=== PATIENT | male | born 1945 | race Caucasian/White ===

== ENCOUNTER 2023-07-25 15:13 | Emergency (ER) | payer OTHER, MEDICARE ==
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
[2023-07-25 15:23] VITALS: RESP 18; TEMP 98.1
[2023-07-25 15:23] LABS: Glucose,Whole Blood 144 mg/dL (70-110)
[2023-07-25 15:40] LABS: Anisocytosis Slight; Basophils % (A) 0 %; Eosinophils # (A) 0.1 k/uL (0-0.7); Eosinophils % (A) 1 %; HCT 28.3 % (39.0-53.0); HGB 8.7 gm/dL (13.0-17.5); Hypochromasia Marked; Lymphocytes # (A) 0.8 k/uL (1.0-4.8); Lymphocytes % (A) 8 %; MCH 24.7 pg (25.0-35.0); MCHC 30.7 g/dL (31.0-37.0); MCV 80.7 fL (80.0-100.0); Mean Platelet Volume 7.5; Microcytosis Slight; Monocytes # (A) 0.7 k/uL (0-1.0); Monocytes % (A) 7 %; Neutrophils # (A) 8.4 k/uL (1.3-7.7); Neutrophils % (A) 82 %; Platelet Count 291 k/uL (150-450); RBC 3.51 m/uL (4.30-5.90); RDW 19.7 % (11.5-15.5); WBC 10.2 k/uL (3.8-10.6)
[2023-07-25 15:48] LABS: INR 1.1 (<1.2); Partial Thromboplastin Time 27.1 sec (22.0-30.0); Prothrombin Time 11.5 sec (9.0-12.0)
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
[2023-07-25 16:00] LABS: ALT 18 U/L (4-49); AST 27 U/L (17-59); African American GFR (CKD) 40 (>60 ml/min/1.73 sqM); Albumin 3.5 g/dL (3.5-5.0); Alcohol <10 mg/dL; Alkaline Phosphatase 137 U/L (38-126); Anion Gap 11 mmol/L; Blood Urea Nitrogen 61 mg/dL (9-20); Calcium 8.9 mg/dL (8.4-10.2); Carbon Dioxide 23 mmol/L (22-30); Chloride 98 mmol/L (98-107); Glucose 121 mg/dL (74-99); Non-African American GFR(CKD) 35 (>60 ml/min/1.73 sqM); Potassium 4.2 mmol/L (3.5-5.1); Sodium 132 mmol/L (137-145); Total Bilirubin 0.9 mg/dL (0.2-1.3); Total Protein 6.3 g/dL (6.3-8.2)
[2023-07-25] MEDS ORDERED: KETOROLAC 15 MG/ML 1 ML VIAL IVP STA (16:22)
[2023-07-25] MEDS ORDERED: ACET/COD 300 MG/30 MG STARTER PACK 6 TAB BTL PO STA (18:01)
[2023-07-25 18:19] VITALS: BP 110/72; PULSE 74
== END 2023-07-25 18:11 | disposition home or self-care (01) ==
LOC: EC 15:13
DX: S61.411A Laceration without foreign body of right hand, initial encounter (principal); S80.811A Abrasion, right lower leg, initial encounter; D64.9 Anemia, unspecified; I48.91 Unspecified atrial fibrillation; I11.0 Hypertensive heart disease with heart failure; I50.9 Heart failure, unspecified; Z79.01 Long term (current) use of anticoagulants; Z79.899 Other long term (current) drug therapy; V89.2XXA Person injured in unspecified motor-vehicle accident, traffic, initial encounter; Y92.410 Unspecified street and highway as the place of occurrence of the external cause
CPT/HCPCS: 36415; 93005; 86900; 86901; 80053; 84484; 85025; 85610; 85730; 86850; 80320; 72170; 71045; 72125; 70450; 99285; 96374; J1885

== ENCOUNTER 2023-11-28 17:54 | Inpatient (IN) | payer MEDICARE ==
[2023-11-28] MEDS ORDERED: DILTIAZEM DRIP BOLUS FROM BAG 1 MG SOLN IV ONE (17:57)
[2023-11-28] MEDS ORDERED: SODIUM CHLORIDE 0.9% 1,000 ML IV STA (17:57)
--- NOTE | 2023-11-28 18:00 | ED ---
General Adult HPI - General Stated complaint: Afib Time Seen by Provider: 11/28/23 17:55 Source: patient, RN notes reviewed, old records reviewed - History of Present Illness Initial comments: This is a 78-year-old male who presents emergency Department because he has been weak all day to the point where he was unable and bili. Patient does have a history of atrial fibrillation. Patient denies chest pain patient denies short ness of breath or difficulty breathing. Patient states she's had no recent fever chills or cough. Patient states he has had a history of anemia however. Patient denies abdominal pain patient denies nausea vomiting diarrhea. - Related Data Home Medications Medication Instructions Recorded Confirmed Apixaban [Eliquis] 5 mg PO BID 07/21/23 07/21/23 Furosemide [Lasix] 40 mg PO BID@0900,1600 07/21/23 07/21/23 Metoprolol Succinate (ER) [Toprol 100 mg PO BID 07/21/23 07/21/23 XL] Multivitamins, Thera [Multivitamin 1 tab PO DAILY 07/21/23 07/21/23 (formulary)] Spironolactone 25 mg PO DAILY 07/21/23 07/21/23 dilTIAZem HCL [dilTIAZem HCL 12Hr 60 mg PO BID 07/21/23 07/21/23 ER] Allergies Allergy/AdvReac Type Severity Reaction Status Date / Time No Known Allergies Allergy Verified 11/28/23 18:01 Review of Systems ROS Statement: Those systems with pertinent positive or pertinent negative responses have been documented in the HPI. ROS Other: All systems not noted in ROS Statement are negative. Past Medical History Past Medical History: Atrial Fibrillation, Heart Failure, Hypertension Additional Past Medical History / Comment(s): [facility] HTN History of Any Multi-Drug Resistant Organisms: None Reported Past Surgical History: Ablation, Joint Replacement Additional Past Surgical History / Comment(s): Left hip Past Anesthesia/Blood Transfusion Reactions: No Reported Reaction Past Psychological History: No Psychological Hx Reported Smoking Status: Never smoker Past Alcohol Use History: None Reported Past Drug Use History: None Reported - Past Family History Mother Family Medical History: Cancer Additional Family Medical History / Comment(s): lung cancer, heavy smoker: mother had TB when patient was 12 Father Family Medical History: Cancer Additional Family Medical History / Comment(s): lung cancer, heavy smoker General Exam - General Exam Comments Initial Comments: GENERAL: Patient is well-developed and well-nourished. Patient is nontoxic and well- hydrated and is mild distress. ENT: Neck is soft and supple. No significant lymphadenopathy is noted. Oropharynx is clear. Moist mucous membranes. Neck has full range of motion without eliciting any pain. EYES: The sclera were anicteric and conjunctiva were pink and moist. Extraocular move ments were intact and pupils were equal round and reactive to light. Eyelids were unremarkable. PULMONARY: Unlabored respirations. Good breath sounds bilaterally. No audible rales rhonchi or wheezing was noted. CARDIOVASCULAR: A. fib with rapid ventricular response at a rate of 130 beats a minute ABDOMEN: Soft and nontender with normal bowel sounds. SKIN: Skin is clear with no lesions or rashes and otherwise unremarkable. NEUROLOGIC: Patient is alert and oriented x3. Cranial nerves II through XII are grossly intact. Motor and sensory are also intact. Normal speech, volume and content. Symmetrical smile. MUSCULOSKELETAL: Normal extremities with adequate strength and full range of motion. LYMPHATICS: No significant lymphadenopathy is noted PSYCHIATRIC: Normal psychiatric evaluation. Course Vital Signs 11/28/23 11/28/23 11/28/23 17:57 19:29 19:39 Temperature 97.0 F L 97.4 F L 97.2 F L Pulse Rate 129 H 124 H 122 H Respiratory 20 22 22 Rate Blood Pressure 118/101 107/67 116/59 O2 Sat by Pulse 95 96 96 Oximetry Medical Decision Making - Medical Decision Making EKG is interpreted by myself EKG shows atrial fibrillation with rapid ventricular response at 119 bpm patient also throwing some PVCs. QRS is 173 QT interval 374 QTC is 444. Patient's EKG shows no significant ST segment elevation. Patient does have a right bundle branch block. Was pt. sent in by a medical professional or institution (, PA, MEMBER SERVICES COORDINATOR, urgent care, hospital, or penitentiary...) When possible be specific @ -No Did you speak to anyone other than the patient for history (EMS, parent, family, police, friend...)? What history was obtained from this source @ -MSK a lot of the history. Did you review nursing and triage notes (agree or disagree)? Why? @ -I reviewed and agree with nursing and triage notes Were old charts reviewed (outside hosp., previous admission, EMS record, old EKG, old radiological studies, urgent care reports/EKG's, penitentiary records)? Report findings @ -I reviewed prior charts and lab work on this patient. Differential Diagnosis (chest pain, altered mental status, abdominal pain women, abdominal pain men, vaginal bleeding, weakness, fever, dyspnea, syncope, he adache, dizziness, GI bleed, back pain, seizure, CVA, palpatations, mental health, musculoskeletal)? @ -Differential Weakness: Hypoglycemia, shock, sepsis, hyponatremia, anemia, infection, IN, ETOH, adverse medicine reaction, overdose, stroke, this is not meant to be an all-inclusive list. EKG interpreted by me (3pts min.). @ -As above X-rays interpreted by me (1pt min.). @ -Chest x-ray shows no acute abnormality CT interpreted by me (1pt min.). @ -None done U/S interpreted by me (1pt. min.). @ -None done What testing was considered but not performed or refused? (CT, X-rays, U/S, labs)? Why? @ -None What meds were considered but not given or refused? Why? @ -None Did you discuss the management of the patient with other professionals (professionals i.e. , PA, MEMBER SERVICES COORDINATOR, lab, RT, psych nurse, social welfare administrator, well tender, teacher, information assurance officer, case picker)? Give summary @ -I spoke with the band log mill and carriage operator and hospitalist and they agreed to admit the patient. Was smoking cessation discussed for >3mins.? @ -No Was critical care preformed (if so, how long)? @ -35 minutes Were there social determinants of health that impacted care today? How? (Homelessness, low income, unemployed, alcoholism, drug addiction, transporta tion, low edu. Level, literacy, decrease access to med. care, retirement, rehab)? @ -No Was there de-escalation of care discussed even if they declined (Discuss DNR or withdrawal of care, Hospice)? DNR status @ -No What co-morbidities impacted this encounter? (DM, HTN, Smoking, COPD, CAD, Cancer, CVA, ARF, Chemo, Hep., AIDS, mental health diagnosis, sleep apnea, morbid obesity)? @ -None Was patient admitted / discharged? Hospital course, mention meds given and route, prescriptions, significant lab abnormalities, going to OR and other pertinent info. @ -Patient came into the emergency department the lab work lab work showed that the patient was very anemic at 5.8. Patient was also hypokalemic. Patient's renal function was also significantly worse. I also replace potassium. I also spoke with the [facility] hospitalist and they agreed to admit the patient admitted the patient wrote admitting orders Undiagnosed new problem with uncertain prognosis? @ -No Drug Therapy requiring intensive monitoring for toxicity (Heparin, Nitro, Insulin, Cardizem)? @ -No Were any procedures done? @ -No Diagnosis/symptom? @ -Anemia Acute, or Chronic, or Acute on Chronic? @ -Acute Uncomplicated (without systemic symptoms) or Complicated (systemic symptoms)? @ -Complicated Side effects of treatment? @ -No Exacerbation, Progression, or Severe Exacerbation? @ -No Poses a threat to life or bodily function? How? (Chest pain, [place], [place], pneumonia, PE, COPD, DKA, ARF, appy, cholecystitis, CVA, Diverticulitis, Homicidal, Suicidal, threat to staff... and all critical care pts) @ -Yes this could lead hypoxia and end organ dysfunction Diagnosis/symptom? @ -Hypokalemia Acute, or Chronic, or Acute on Chronic? @ -Acute Uncomplicated (without systemic symptoms) or Complicated (systemic symptoms)? @ -Complicated Side effects of treatment? @ -none Exacerbation, Progression, or Severe Exacerbation] @ -no Poses a threat to life or bodily function? @ -Yes this could lead to arrhythmias and morbidity mortality Diagnosis/symptom? @ -Acute renal failure Acute, or Chronic, or Acute on Chronic? @ -Acute Uncomplicated (without systemic symptoms) or Complicated (systemic symptoms)? @ -Complicated Side effects of treatment? @ -none Exacerbation, Progression, or Severe Exacerbation] @ -no Poses a threat to life or bodily function? @ -Yes this could lead to significant electrolyte abnormalities Diagnosis/symptom? @ -A. fib with rapid ventricular response Acute, or Chronic, or Acute on Chronic? @ -Acute on chronic Uncomplicated (without systemic symptoms) or Complicated (systemic symptoms)? @ -Complicated Side effects of treatment? @ -none Exacerbation, Progression, or Severe Exacerbation] @ -no Poses a threat to life or bodily function? @ -no - Lab Data Result diagrams: 11/28/23 18:02 11/28/23 18:02 Lab Results 11/28/23 11/28/23 11/28/23 Range/Units 18:00 18:02 18:02 WBC 17.8 H (3.8-10.6) k/uL RBC 2.07 L (4.30-5.90) m/uL Hgb 5.8 L* (13.0-17.5) gm/dL Hct 17.9 L* (39.0-53.0) % MCV 86.6 (80.0-100.0) fL MCH 28.1 (25.0-35.0) pg MCHC 32.5 (31.0-37.0) g/dL RDW 21.3 H (11.5-15.5) % Plt Count 352 (150-450) k/uL MPV 8.5 Neutrophils % 92 % Lymphocytes % 4 % Monocytes % 2 % Eosinophils % 1 % Basophils % 0 % Neutrophils # 16.5 H (1.3-7.7) k/uL Lymphocytes # 0.7 L (1.0-4.8) k/uL Monocytes # 0.4 (0-1.0) k/uL Eosinophils # 0.2 (0-0.7) k/uL Basophils # 0.0 (0-0.2) k/uL Hypochromasia Slight Anisocytosis Moderate PT 13.1 H (10.0-12.5) sec INR 1.2 H (<1.2) APTT 21.3 L (22.0-30.0) sec Sodium (137-145) mmol/L Potassium (3.5-5.1) mmol/L Chloride (98-107) mmol/L Carbon Dioxide (22-30) mmol/L Anion Gap mmol/L BUN (9-20) mg/dL Creatinine (0.66-1.25) mg/dL Est GFR (CKD-EPI)AfAm (>60 ml/min/1.73 sqM) Est GFR (CKD-EPI)NonAf (>60 ml/min/1.73 sqM) Glucose (74-99) mg/dL Calcium (8.4-10.2) mg/dL Magnesium (1.6-2.3) mg/dL Total Bilirubin (0.2-1.3) mg/dL AST (17-59) U/L ALT (4-49) U/L Alkaline Phosphatase (38-126) U/L Troponin I (0.000-0.034) ng/mL NT-Pro-B Natriuret Pep pg/mL Total Protein (6.3-8.2) g/dL Albumin (3.5-5.0) g/dL Urine Color Urine Appearance (Clear) Urine pH (5.0-8.0) Ur Specific [place] (1.001-1.035) Urine Protein (Negative) Urine Glucose (UA) (Negative) Urine Ketones (Negative) Urine Blood (Negative) Urine Nitrite (Negative) Urine Bilirubin (Negative) Urine Urobilinogen (<2.0) mg/dL Ur Leukocyte Esterase (Negative) Urine RBC (0-5) /hpf Urine WBC (0-5) /hpf Urine Bacteria (None) /hpf Urine Mucus (None) /hpf Blood Type O Positive Blood Type Recheck O Pos Bld Type Recheck Status No Antibody Screen NEGATIVE Crossmatch See Detail Spec Expiration Date 12/01/2023 - 229911/28/23 11/28/23 11/28/23 Range/Units 18:02 18:02 18:57 WBC (3.8-10.6) k/uL RBC (4.30-5.90) m/uL Hgb (13.0-17.5) gm/dL Hct (39.0-53.0) % MCV (80.0-100.0) fL MCH (25.0-35.0) pg MCHC (31.0-37.0) g/dL RDW (11.5-15.5) % Plt Count (150-450) k/uL MPV Neutrophils % % Lymphocytes % % Monocytes % % Eosinophils % % Basophils % % Neutrophils # (1.3-7.7) k/uL Lymphocytes # (1.0-4.8) k/uL Monocytes # (0-1.0) k/uL Eosinophils # (0-0.7) k/uL Basophils # (0-0.2) k/uL Hypochromasia Anisocytosis PT (10.0-12.5) sec INR (<1.2) APTT (22.0-30.0) sec Sodium 147 H (137-145) mmol/L Potassium 2.8 L (3.5-5.1) mmol/L Chloride 105 (98-107) mmol/L Carbon Dioxide 15 L (22-30) mmol/L Anion Gap 27 mmol/L BUN 200 H* (9-20) mg/dL Creatinine 3.12 H (0.66-1.25) mg/dL Est GFR (CKD-EPI)AfAm 21 (>60 ml/min/1.73 sqM) Est GFR (CKD-EPI)NonAf 18 (>60 ml/min/1.73 sqM) Glucose 153 H (74-99) mg/dL Calcium 10.1 (8.4-10.2) mg/dL Magnesium 2.5 H (1.6-2.3) mg/dL Total Bilirubin 0.7 (0.2-1.3) mg/dL AST 28 (17-59) U/L ALT 20 (4-49) U/L Alkaline Phosphatase 92 (38-126) U/L Troponin I 0.054 H* (0.000-0.034) ng/mL NT-Pro-B Natriuret Pep 67492 pg/mL Total Protein 6.4 (6.3-8.2) g/dL Albumin 3.8 (3.5-5.0) g/dL Urine Color Colorless Urine Appearance Clear (Clear) Urine pH 5.5 (5.0-8.0) Ur Specific [place] 1.014 (1.001-1.035) Urine Protein Negative (Negative) Urine Glucose (UA) Negative (Negative) Urine Ketones Negative (Negative) Urine Blood Negative (Negative) Urine Nitrite Negative (Negative) Urine Bilirubin Negative (Negative) Urine Urobilinogen <2.0 (<2.0) mg/dL Ur Leukocyte Esterase Large H (Negative) Urine RBC 1 (0-5) /hpf Urine WBC 5 (0-5) /hpf Urine Bacteria Rare H (None) /hpf Urine Mucus Rare H (None) /hpf Blood Type Blood Type Recheck Bld Type Recheck Status Antibody Screen Crossmatch Spec Expiration Date Critical Care Time Critical Care Time: Yes Total Critical Care Time: 35 Disposition Clinical Impression: Anemia, Hypokalemia, Acute renal failure, Atrial fibrillation with rapid ventricular response Disposition: ADMITTED IP TO THIS [facility] Time of Disposition: 19:38
--- NOTE | 2023-11-28 18:20 | XR ---
EXAMINATION TYPE: XR chest 2V DATE OF EXAM: 11/28/2023 COMPARISON: 07/25/2023 INDICATION: Dysrhythmia TECHNIQUE: Frontal and lateral views of the chest are obtained. FINDINGS: The heart size is normal. The pulmonary vasculature is normal. The lungs are clear. IMPRESSION: 1. No acute pulmonary process.
[2023-11-28 18:22] LABS: Anisocytosis Moderate; Basophils % (A) 0 %; Eosinophils # (A) 0.2 k/uL (0-0.7); Eosinophils % (A) 1 %; Hypochromasia Slight; Lymphocytes # (A) 0.7 k/uL (1.0-4.8); Lymphocytes % (A) 4 %; MCH 28.1 pg (25.0-35.0); MCHC 32.5 g/dL (31.0-37.0); MCV 86.6 fL (80.0-100.0); Mean Platelet Volume 8.5; Monocytes # (A) 0.4 k/uL (0-1.0); Monocytes % (A) 2 %; Neutrophils # (A) 16.5 k/uL (1.3-7.7); Neutrophils % (A) 92 %; Platelet Count 352 k/uL (150-450); RBC 2.07 m/uL (4.30-5.90); RDW 21.3 % (11.5-15.5); WBC 17.8 k/uL (3.8-10.6)
[2023-11-28] MEDS: DILTIAZEM 125 MG in SODIUM CHLORIDE 0.9% 100 ML IV SCH (18:26)
[2023-11-28 18:29] LABS: HCT 17.9 % (39.0-53.0); HGB 5.8 gm/dL (13.0-17.5)
[2023-11-28 18:36] LABS: ALT 20 U/L (4-49); AST 28 U/L (17-59); African American GFR (CKD) 21 (>60 ml/min/1.73 sqM); Albumin 3.8 g/dL (3.5-5.0); Alkaline Phosphatase 92 U/L (38-126); Anion Gap 27 mmol/L; Calcium 10.1 mg/dL (8.4-10.2); Carbon Dioxide 15 mmol/L (22-30); Chloride 105 mmol/L (98-107); Glucose 153 mg/dL (74-99); Magnesium 2.5 mg/dL (1.6-2.3); Non-African American GFR(CKD) 18 (>60 ml/min/1.73 sqM); Potassium 2.8 mmol/L (3.5-5.1); Sodium 147 mmol/L (137-145); Total Bilirubin 0.7 mg/dL (0.2-1.3); Total Protein 6.4 g/dL (6.3-8.2)
[2023-11-28 18:45] LABS: NT-Pro-B-Type Natriuretic Pept 16000 pg/mL
[2023-11-28 18:46] LABS: INR 1.2 (<1.2); Prothrombin Time 13.1 sec (10.0-12.5)
[2023-11-28 18:47] LABS: Partial Thromboplastin Time 21.3 sec (22.0-30.0)
[2023-11-28 18:55] LABS: Blood Urea Nitrogen 200 mg/dL (9-20)
[2023-11-28 19:15] LABS: Appearance,Urine Clear (Clear); Bacteria,Urine Rare /hpf; Bilirubin,Urine Negative (Negative); Blood,Urine Negative (Negative); Color,Urine Colorless; Glucose,Urine (UA) Negative (Negative); Ketones,Urine Negative (Negative); Leukocyte Esterase,Urine Large (Negative); Mucus,Urine Rare /hpf; Nitrite,Urine Negative (Negative); PH, Urine 5.5 (5.0-8.0); Protein,Urine Negative (Negative); RBC,Urine 1 /hpf (0-5); Specific Gravity,Urine 1.014 (1.001-1.035); Urobilinogen,Urine <2.0 mg/dL (<2.0); WBC,Urine 5 /hpf (0-5)
[2023-11-28] MEDS ORDERED: POTASSIUM CHLORIDE 20 MEQ in WATER FOR INJECTION 1 100ML.BAG IVPB STA (19:38)
[2023-11-28] MEDS ORDERED: POTASSIUM CHLORIDE ER 20 MEQ TAB.ER PO STA (19:39)
[2023-11-28] MEDS ORDERED: SODIUM CHLORIDE 0.9% 1,000 ML IV ONE (19:39)
[2023-11-28] MEDS: CLOTRIMAZOLE 1% CREAM 30 GM TUBE TOPICAL SCH (21:53)
[2023-11-29 03:22] LABS: Anisocytosis Slight; Basophils % (A) 0 %; Eosinophils % (A) 0 %; HCT 21.7 % (39.0-53.0); HGB 7.2 gm/dL (13.0-17.5); Hypochromasia Slight; Lymphocytes # (A) 0.7 k/uL (1.0-4.8); Lymphocytes % (A) 4 %; MCH 29.3 pg (25.0-35.0); MCV 88.8 fL (80.0-100.0); Mean Platelet Volume 9.1; Monocytes # (A) 0.9 k/uL (0-1.0); Monocytes % (A) 5 %; Neutrophils # (A) 15.3 k/uL (1.3-7.7); Neutrophils % (A) 89 %; Platelet Count 260 k/uL (150-450); RBC 2.45 m/uL (4.30-5.90); RDW 18.3 % (11.5-15.5); WBC 17.1 k/uL (3.8-10.6)
[2023-11-29 08:44] LABS: Anisocytosis Slight; HCT 22.9 % (39.0-53.0); HGB 7.4 gm/dL (13.0-17.5); Hypochromasia Slight; MCH 28.6 pg (25.0-35.0); MCHC 32.3 g/dL (31.0-37.0); MCV 88.5 fL (80.0-100.0); Mean Platelet Volume 10.5; Platelet Count 225 k/uL (150-450); Poikilocytosis Slight; RBC 2.59 m/uL (4.30-5.90); RDW 18.4 % (11.5-15.5); WBC 17.8 k/uL (3.8-10.6)
[2023-11-29 09:04] LABS: African American GFR (CKD) 27 (>60 ml/min/1.73 sqM); Anion Gap 18 mmol/L; Calcium 9.7 mg/dL (8.4-10.2); Carbon Dioxide 15 mmol/L (22-30); Chloride 111 mmol/L (98-107); Glucose 131 mg/dL (74-99); Magnesium 2.4 mg/dL (1.6-2.3); Non-African American GFR(CKD) 23 (>60 ml/min/1.73 sqM); Potassium 3.1 mmol/L (3.5-5.1); Sodium 144 mmol/L (137-145)
[2023-11-29 09:39] LABS: Blood Urea Nitrogen 166 mg/dL (9-20)
[2023-11-29] MEDS: CLOTRIMAZOLE 1% CREAM 30 GM TUBE TOPICAL SCH ×2 (09:56→21:35)
[2023-11-29] MEDS: METOPROLOL SUCCINATE (ER) 100 MG TAB.ER.24H PO SCH (10:01)
[2023-11-29] MEDS: methocarbamoL 500 MG TAB PO PRN ×2 (11:37→20:37)
--- NOTE | 2023-11-29 11:52 | P.CRDCN ---
History of Present Illness History of present illness: HISTORY OF PRESENT ILLNESS: This is a 78-year-old male with a past medical history significant for persistent atrial fibrillation, congestive heart failure, hypertension, and chronic anemia. Patient follows with a big data lead out of [facility]. We have been asked to see the patient in consultation for A. fib with RVR. Patient examined at the bedside in the emergency room. The patient states he presented to the hospital for chief complaint of weakness. He denied having any chest pain or pressure. He denies any shortness of breath. Patient was found to be anemic with a hemoglobin of 5.8. He received RBC transfusion. Hemoglobin this morning is 7.4. He does report a history of anemia but he is somewhat of a poor historian and is unable to recall if he has had anemia workup in the past. He is prescribed Eliquis on an outpatient basis. He denies any blood in his stools or black tarry stools. Denies any hematuria. The patient was also found to be in A. fib with RVR. He was started on IV Cardizem. At the time of examination, he remains in atrial fibrillation with a heart rate around 120. He denies any previous history of coronary artery disease. * EKG reveals A. fib with RVR. Right bundle-branch block. PVCs. * Chest xray negative for acute process * Laboratory data: Hemoglobin 7.4. W BC 17.8. BUN 166. Creatinine 2.56. Troponin 0.054. ProBNP 16,000. * Current home cardiac medications include Eliquis 5 mg twice a day, Lasix 20 mg twice a day, Demadex 20 mg twice a day, metoprolol succinate 100 mg in the morning and 50 mg at night * Most recent echocardiogram obtained in July 2023 revealing ejection fraction 50%, severe pulmonary hypertension, moderate to severe mitral regurgitation, extremely calcified aortic valves, difficult to exclude bicuspid aortic valve. REVIEW OF SYSTEMS: At the time of my exam: CONSTITUTIONAL: Denies fever or chills. HEENT: Denies blurred vision, vision changes, or eye pain. Denies hemoptysis CARDIOVASCULAR: Denies chest pain. Denies orthopnea. Denies PND. Denies palpitations RESPIRATORY: Denies shortness of breath. GASTROINTESTINAL: Denies abdominal pain. Denies nausea or vomiting. HEMATOLOGIC: Denies bleeding disorders. GENITOURINARY: Denies any blood in urine. SKIN: Denies pruitis. Denies rash. PHYSICAL EXAM: VITAL SIGNS: Reviewed. GENERAL: Well-developed in no acute distress. HEENT: Head is normocephalic. Pupils are equal, round. Sclerae anicteric. Mucous membranes of the mouth are moist. Neck supple. No JVD or thyromegaly LUNGS: Respirations even and unlabored. Lungs essentially clear to auscultation bilaterally. HEART: Tachycardic. Irregular rate and rhythm. S1 and S2 heard. ABDOMEN: Soft. Nondistended. Nontender. EXTREMITIES: Normal range of motion. No clubbing or cyanosis. Peripheral pulses intact. No lower extremity edema NEUROLOGIC: Awake and alert. Oriented x 3. ASSESSMENT: Generalized weakness Persistent atrial fibrillation with RVR Acute on chronic anemia, etiology unclear Acute kidney injury Hypokalemia History of atrial fibrillation ablation, approximately 4 years ago History of congestive heart failure with preserved ejection fraction, 50% PLAN: Obtain 2-D echo to assess cardiac structure and function Resume metoprolol succinate Continue IV Cardizem at this time for rate control Continue telemetry monitoring Hold anticoagulation secondary to anemia Further workup and evaluation of anemia per internal medicine Patient prescribed Demadex and Lasix on an outpatient basis. Unsure if patient was taking both of these medications at home. Hold diuretics at this time Hold losartan secondary to acute kidney injury Further recommendations pending patient's course Nurse practitioner note has been reviewed by physician. Signing provider agrees with the documented findings, assessment, and plan of care. Past Medical History Past Medical History: Atrial Fibrillation, Heart Failure, Hypertension Additional Past Medical History / Comment(s): pumonary HTN History of Any Multi-Drug Resistant Organisms: None Reported Past Surgical History: Ablation, Joint Replacement Additional Past Surgical History / Comment(s): Left hip Past Anesthesia/Blood Transfusion Reactions: No Reported Reaction Past Psychological History: No Psychological Hx Reported Smoking Status: Never smoker Past Alcohol Use History: None Reported Past Drug Use History: None Reported - Past Family History Mother Family Medical History: Cancer Additional Family Medical History / Comment(s): lung cancer, heavy smoker: mother had TB when patient was 12 Father Family Medical History: Cancer Additional Family Medical History / Comment(s): lung cancer, heavy smoker Medications and Allergies Home Medications Medication Instructions Recorded Confirmed Type Apixaban [Eliquis] 5 mg PO BID 07/21/23 11/28/23 History Docusate Sodium [Dok] 100 mg PO BID 11/28/23 11/28/23 History Furosemide [Lasix] 20 mg PO BID 11/28/23 11/28/23 History Losartan Potassium 50 mg PO DAILY 11/28/23 11/28/23 History Metoprolol Succinate [Toprol XL] 50 mg PO HS 11/28/23 11/28/23 History Metoprolol Succinate [Toprol XL] 100 mg PO DAILY 11/28/23 11/28/23 History Torsemide [Demadex] 20 mg PO BID 11/28/23 11/28/23 History methocarbamoL [Robaxin] 500 mg PO TID PRN 11/28/23 11/28/23 History traZODone HCL [Desyrel] 100 mg PO HS 11/28/23 11/28/23 History Allergies Allergy/AdvReac Type Severity Reaction Status Date / Time No Known Allergies Allergy Verified 11/28/23 20:13 Physical Exam Vitals: Vital Signs Temp Pulse Pulse Resp BP BP Pulse Ox 11/29/23 08:57 105/74 11/29/23 08:56 118 H 22 94/75 99 11/29/23 08:45 116 H 22 124/71 99 11/29/23 08:36 147 H 25 H 139/76 100 11/29/23 01:43 97.3 F L 117 H 20 112/78 100 11/28/23 23:42 97.5 F L 118 H 20 125/70 100 11/28/23 23:22 97.2 F L 129 H 20 126/70 100 11/28/23 23:16 97.3 F L 133 H 20 126/60 100 11/28/23 22:27 97.9 F 126 H 20 119/54 100 11/28/23 19:59 97.9 F 125 H 20 117/68 100 11/28/23 19:39 97.2 F L 122 H 22 116/59 96 11/28/23 19:29 97.4 F L 124 H 22 107/67 96 11/28/23 17:57 97.0 F L 129 H 20 118/101 95 Intake and Output 11/28/23 11/29/23 11/29/23 22:59 06:59 14:59 Intake Total 310 310 70.583 Balance 310 310 70.583 Intake: Intake, IV Titration 70.583 Amount Diltiazem 125 mg In 70.583 Sodium Chloride 0.9% 100 ml @ 5 MG/HR 5 mls/hr IV .Q24H [facility] Rx#:[id number] Blood Product 310 310 Rc As-1 Unit 310 [id number] Rc As-1 Unit 310 [id number] Other: Weight 77.836 kg Results 11/29/23 08:31 11/29/23 08:31 Cardiac Enzymes 11/28/23 11/28/23 Range/Units 18:02 18:02 AST 28 (17-59) U/L Troponin I 0.054 H* (0.000-0.034) ng/mL Coagulation 11/28/23 Range/Units 18:02 PT 13.1 H (10.0-12.5) sec APTT 21.3 L (22.0-30.0) sec CBC 11/28/23 11/29/23 11/29/23 Range/Units 18:02 02:23 08:31 WBC 17.8 H 17.1 H 17.8 H (3.8-10.6) k/uL RBC 2.07 L 2.45 L 2.59 L (4.30-5.90) m/uL Hgb 5.8 L* 7.2 L 7.4 L (13.0-17.5) gm/dL Hct 17.9 L* 21.7 L 22.9 L (39.0-53.0) % Plt Count 352 260 225 (150-450) k/uL Comprehensive Metabolic Panel 11/28/23 Range/Units 18:02 Sodium 147 H (137-145) mmol/L Potassium 2.8 L (3.5-5.1) mmol/L Chloride 105 (98-107) mmol/L Carbon Dioxide 15 L (22-30) mmol/L BUN 200 H* (9-20) mg/dL Creatinine 3.12 H (0.66-1.25) mg/dL Glucose 153 H (74-99) mg/dL Calcium 10.1 (8.4-10.2) mg/dL AST 28 (17-59) U/L ALT 20 (4-49) U/L Alkaline Phosphatase 92 (38-126) U/L Total Protein 6.4 (6.3-8.2) g/dL Albumin 3.8 (3.5-5.0) g/dL Current Medications Generic Name Dose Route Start Last Admin Trade Name Jessika PRN Reason Stop Dose Admin Clotrimazole 1 applic 11/28/23 21:00 11/28/23 21:53 Clotrimazole 1% Cream 30 Gm Tube TOPICAL 1 applic BID [facility] Administration Protocol Diltiazem HCl 125 mg/ Sodium 125 mls @ 5 mls/hr 11/28/23 18:00 11/29/23 08:33 Chloride IV 10 mg/hr .Q24H JEREMIAS 10 mls/hr Infusion 5 MG/HR Intake and Output 11/28/23 11/29/23 11/29/23 22:59 06:59 14:59 Intake Total 310 310 70.583 Balance 310 310 70.583 Intake: Intake, IV Titration 70.583 Amount Diltiazem 125 mg In 70.583 Sodium Chloride 0.9% 100 ml @ 5 MG/HR 5 mls/hr IV .Q24H [facility] Rx#:[id number] Blood Product 310 310 Rc As-1 Unit 310 [id number] Rc As-1 Unit 310 [id number] Other: Weight 77.836 kg 11/29/23 08:31 11/28/23 18:02
--- NOTE | 2023-11-29 12:07 | P.NPCON ---
History of Present Illness - Reason for Consult acute renal failure - History of Present Illness Patient is a 78-year-old male with history of hypertension, chronic A. fib, pulmonary hypertension and chronic kidney disease NKF stage IV with previous creatinine at 1.8 mg/dL in July 2023. Patient is admitted to the hospital with complaints of increased weakness and inability to ambulate. He denied any fevers chills nausea vomiting abdominal pain or diarrhea. Serum creatinine was 3.1 with BUN of 200 on admission with a hemoglobin of 5.8. Repeat creatinine this morning is down to 2.5 and B UN of 166. No active GI bleed noted. Patient is status post fluid bolus. Maintained on a liquid is at home for chronic A. fib. Patient was also maintained on losartan and torsemide. Blood pressure was low with systolic in the 90s. Currently feeling better. Review of Systems As per HPI Past Medical History Past Medical History: Atrial Fibrillation, Heart Failure, Hypertension Additional Past Medical History / Comment(s): pumonary HTN History of Any Multi-Drug Resistant Organisms: None Reported Past Surgical History: Ablation, Joint Replacement Additional Past Surgical History / Comment(s): Left hip Past Anesthesia/Blood Transfusion Reactions: No Reported Reaction Past Psychological History: No Psychological Hx Reported Smoking Status: Never smoker Past Alcohol Use History: None Reported Past Drug Use History: None Reported - Past Family History Mother Family Medical History: Cancer Additional Family Medical History / Comment(s): lung cancer, heavy smoker: mother had TB when patient was 12 Father Family Medical History: Cancer Additional Family Medical History / Comment(s): lung cancer, heavy smoker Medications and Allergies Home Medications Medication Instructions Recorded Confirmed Type Apixaban [Eliquis] 5 mg PO BID 07/21/23 11/28/23 History Docusate Sodium [Dok] 100 mg PO BID 11/28/23 11/28/23 History Furosemide [Lasix] 20 mg PO BID 11/28/23 11/28/23 History Losartan Potassium 50 mg PO DAILY 11/28/23 11/28/23 History Metoprolol Succinate [Toprol XL] 50 mg PO HS 11/28/23 11/28/23 History Metoprolol Succinate [Toprol XL] 100 mg PO DAILY 11/28/23 11/28/23 History Torsemide [Demadex] 20 mg PO BID 11/28/23 11/28/23 History methocarbamoL [Robaxin] 500 mg PO TID PRN 11/28/23 11/28/23 History traZODone HCL [Desyrel] 100 mg PO HS 11/28/23 11/28/23 History Allergies Allergy/AdvReac Type Severity Reaction Status Date / Time No Known Allergies Allergy Verified 11/28/23 20:13 Physical Exam Vitals: Vital Signs Temp Pulse Pulse Resp BP BP Pulse Ox 11/29/23 09:07 120 H 22 106/86 99 11/29/23 08:57 105/74 11/29/23 08:56 118 H 22 94/75 99 11/29/23 08:45 116 H 22 124/71 99 11/29/23 08:36 147 H 25 H 139/76 100 11/29/23 01:43 97.3 F L 117 H 20 112/78 100 11/28/23 23:42 97.5 F L 118 H 20 125/70 100 11/28/23 23:22 97.2 F L 129 H 20 126/70 100 11/28/23 23:16 97.3 F L 133 H 20 126/60 100 11/28/23 22:27 97.9 F 126 H 20 119/54 100 11/28/23 19:59 97.9 F 125 H 20 117/68 100 11/28/23 19:39 97.2 F L 122 H 22 116/59 96 11/28/23 19:29 97.4 F L 124 H 22 107/67 96 11/28/23 17:57 97.0 F L 129 H 20 118/101 95 Intake and Output 11/28/23 11/29/23 11/29/23 22:59 06:59 14:59 Intake Total 310 310 70.583 Balance 310 310 70.583 Intake: Intake, IV Titration 70.583 Amount Diltiazem 125 mg In 70.583 Sodium Chloride 0.9% 100 ml @ 5 MG/HR 5 mls/hr IV .Q24H [facility] Rx#:[id number] Blood Product 310 310 As-1 Unit 310 [id number] As-1 Unit 310 [id number] Other: Weight 77.836 kg Patient is awake, comfortable, no acute distress Examination of the heart S1 and S2 Examination of the lungs bilateral breath sounds are heard Abdomen is soft nontender Examination of lower extremities shows no significant edema TYPING SECTION CHIEF exam grossly intact Results - Lab Results Most recent lab results Calcium 9.7 mg/dL (8.4-10.2) 11/29/23 08:31 Magnesium 2.4 mg/dL (1.6-2.3) H 11/29/23 08:31 11/29/23 08:31 11/29/23 08:31 Assessment and Plan Assessment: 1. Acute kidney injury, ATN currently nonoliguric secondary to hypotension in t he setting of use of angiotensin receptor blockers and severe anemia. Currently improving with IV hydration. B UN is disproportionately elevated secondary to most likely underlying GI bleed. UA is completely benign 2. Severe anemia rule out GI bleed. Patient was maintained on eliquis. 3. Hypokalemia associated with use of diuretics and decreased oral intake 4. Hypotension, hypovolemic and secondary to severe anemia. 5. Anion gap metabolic acidosis associated with acute kidney injury and hypotension 6. Hypernatremia so sedated with free water deficit and use of diuretics 7. Chronic kidney disease NKF stage IV secondary to nephrosclerosis with previous creatinine 1.8 in July 2023. Plan: IV hydration Change the bicarb drip Replace potassium Check post void residual Check ultrasound of the kidneys Repeat labs in a.m. Continue off of angiotensin receptor blockers and hold liquids for now. Check stool for occult blood. Thank you for the consultation. We will continue to follow the patient with you during his hospitalization.
[2023-11-29] MEDS ORDERED: Magnesium Replacement Protocol 1 EACH MISC MISCELLANE PRN (12:20)
[2023-11-29] MEDS ORDERED: Potassium Replacement Protocol 1 EACH MISC MISCELLANE PRN (12:20)
[2023-11-29] MEDS ORDERED: PANTOPRAZOLE 40 MG/10 ML VIAL IVP SCH (12:30)
[2023-11-29] MEDS: DEXTROSE 5% IN WATER 1,000 ML with SODIUM BICARB (1 MEQ/ML) 150 ML IV SCH (12:34)
[2023-11-29] MEDS: DILTIAZEM 125 MG in SODIUM CHLORIDE 0.9% 100 ML IV SCH (12:40)
--- NOTE | 2023-11-29 14:10 | P.GSCN ---
History of Present Illness Consult date: 11/29/23 History of present illness: CHIEF COMPLAINT: Weakness HISTORY OF PRESENT ILLNESS: This is a 78-year-old male who presented to the hospital with complaints of weakness. He reports she's been having black stools almost every other day for the past 4 weeks. He does take Eliquis for his A. fib. He reports he has not taken it for 2 days. He denies any abdominal pain. He thought the black stools were normal. He reports having a colonoscopy about 4 months ago and possibly an EGD he reports at that time it was normal. He denies any abdominal pain. Denies any nausea or vomiting. He's had a history of anemia. Hemoglobin of 5.8 admission he received 2 units of blood and is scheduled for another unit. Stool for occult blood is positive. He has been tachycardic and hypotensive. And evidence of A. fib with RVR. He is on a Cardizem drip and followed by cardiology. Also evidence of acute kidney injury and followed by nephrology. Patient receiving IV fluids and sodium bicarb drip. Patient denies any NSAID use PAST MEDICAL HISTORY: Atrial Fibrillation, Heart Failure, Hypertension, pulmonary hypertension PAST SURGICAL HISTORY: Cardiac ablation MEDICATIONS: See below ALLERGIES: See below SOCIAL HISTORY: No illicit drug use. REVIEW OF SYSTEMS: CONSTITUTIONAL: Denies fever or chills. HEENT: Denies blurred vision, vision changes, or eye pain. Denies hemoptysis CARDIOVASCULAR: Denies chest pain or pressure. RESPIRATORY: No shortness of breath. GASTROINTESTINAL: See HPI for pertinent findings HEMATOLOGIC: Denies bleeding disorders. GENITOURINARY: Denies any blood in urine or increased urinary frequency. SKIN: Denies pruitis. Denies rash. PHYSICAL EXAM: VITAL SIGNS: Reviewed GENERAL: Well-developed in no acute distress. ABDOMEN: Soft. Nondistended. Nontender NEUROLOGIC: Alert and oriented. Cranial nerves II through XII grossly intact. LABORATORY DATA: WBC 17.8 H she be 5.8 up to 7.4 platelets 225 Sodium 144 potassium is 3.1 creatinine 2.6 BUN elevated at 166 Troponin 0.054 BNP 16,000 Stool for occult blood positive IMAGING: ASSESSMENT: 1. Acute GI bleed with melanotic stools 2. Acute blood loss anemia secondary GI bleed 3. History of atrial fibrillation on Eliquis at home 4. Hypokalemia replaced PLAN: -Agree with transferring patient to tertiary care center or patient can had EGD with Dr. Lyles on . There is no GI coverage this week -Agree with blood transfusion -Continue to transfuse as needed -Continue to monitor hemoglobin -Continue IV fluids -Hold Eliquis -Change IV Protonix to twice a day Physician Director Of Rooms note has been reviewed by physician. Signing provider agrees with the documented findings, assessment, and plan of care. Past Medical History Past Medical History: Atrial Fibrillation, Heart Failure, Hypertension Additional Past Medical History / Comment(s): pumonary HTN History of Any Multi-Drug Resistant Organisms: None Reported Past Surgical History: Ablation, Joint Replacement Additional Past Surgical History / Comment(s): Left hip Past Anesthesia/Blood Transfusion Reactions: No Reported Reaction Past Psychological History: No Psychological Hx Reported Smoking Status: Never smoker Past Alcohol Use History: None Reported Past Drug Use History: None Reported - Past Family History Mother Family Medical History: Cancer Additional Family Medical History / Comment(s): lung cancer, heavy smoker: mother had TB when patient was 12 Father Family Medical History: Cancer Additional Family Medical History / Comment(s): lung cancer, heavy smoker Medications and Allergies Home Medications Medication Instructions Recorded Confirmed Type Apixaban [Eliquis] 5 mg PO BID 07/21/23 11/28/23 History Docusate Sodium [Dok] 100 mg PO BID 11/28/23 11/28/23 History Furosemide [Lasix] 20 mg PO BID 11/28/23 11/28/23 History Losartan Potassium 50 mg PO DAILY 11/28/23 11/28/23 History Metoprolol Succinate [Toprol XL] 50 mg PO HS 11/28/23 11/28/23 History Metoprolol Succinate [Toprol XL] 100 mg PO DAILY 11/28/23 11/28/23 History Torsemide [Demadex] 20 mg PO BID 11/28/23 11/28/23 History methocarbamoL [Robaxin] 500 mg PO TID PRN 11/28/23 11/28/23 History traZODone HCL [Desyrel] 100 mg PO HS 11/28/23 11/28/23 History Allergies Allergy/AdvReac Type Severity Reaction Status Date / Time No Known Allergies Allergy Verified 11/28/23 20:13 Surgical - Exam Vital Signs Temp Pulse Resp BP Pulse Ox 97.0 F L 129 H 20 118/101 95 11/28/23 17:57 11/28/23 17:57 11/28/23 17:57 11/28/23 17:57 11/28/23 17:57 Results - Labs 11/29/23 08:31 11/29/23 08:31 Abnormal Lab Results - Last 24 Hours (Table) 11/28/23 11/28/23 11/28/23 Range/Units 18:00 18:02 18:02 WBC 17.8 H (3.8-10.6) k/uL RBC 2.07 L (4.30-5.90) m/uL Hgb 5.8 L* (13.0-17.5) gm/dL Hct 17.9 L* (39.0-53.0) % RDW 21.3 H (11.5-15.5) % Neutrophils # 16.5 H (1.3-7.7) k/uL Lymphocytes # 0.7 L (1.0-4.8) k/uL PT 13.1 H (10.0-12.5) sec INR 1.2 H (<1.2) APTT 21.3 L (22.0-30.0) sec Sodium (137-145) mmol/L Potassium (3.5-5.1) mmol/L Chloride (98-107) mmol/L Carbon Dioxide (22-30) mmol/L BUN (9-20) mg/dL Creatinine (0.66-1.25) mg/dL Glucose (74-99) mg/dL Magnesium (1.6-2.3) mg/dL Troponin I (0.000-0.034) ng/mL Ur Leukocyte Esterase (Negative) Urine Bacteria (None) /hpf Urine Mucus (None) /hpf Crossmatch See Detail 11/28/23 11/28/23 11/28/23 Range/Units 18:02 18:02 18:57 WBC (3.8-10.6) k/uL RBC (4.30-5.90) m/uL Hgb (13.0-17.5) gm/dL Hct (39.0-53.0) % RDW (11.5-15.5) % Neutrophils # (1.3-7.7) k/uL Lymphocytes # (1.0-4.8) k/uL PT (10.0-12.5) sec INR (<1.2) APTT (22.0-30.0) sec Sodium 147 H (137-145) mmol/L Potassium 2.8 L (3.5-5.1) mmol/L Chloride (98-107) mmol/L Carbon Dioxide 15 L (22-30) mmol/L BUN 200 H* (9-20) mg/dL Creatinine 3.12 H (0.66-1.25) mg/dL Glucose 153 H (74-99) mg/dL Magnesium 2.5 H (1.6-2.3) mg/dL Troponin I 0.054 H* (0.000-0.034) ng/mL Ur Leukocyte Esterase Large H (Negative) Urine Bacteria Rare H (None) /hpf Urine Mucus Rare H (None) /hpf Crossmatch 11/29/23 11/29/23 11/29/23 Range/Units 02:23 08:31 08:31 WBC 17.1 H 17.8 H (3.8-10.6) k/uL RBC 2.45 L 2.59 L (4.30-5.90) m/uL Hgb 7.2 L 7.4 L (13.0-17.5) gm/dL Hct 21.7 L 22.9 L (39.0-53.0) % RDW 18.3 H 18.4 H (11.5-15.5) % Neutrophils # 15.3 H (1.3-7.7) k/uL Lymphocytes # 0.7 L (1.0-4.8) k/uL PT (10.0-12.5) sec INR (<1.2) APTT (22.0-30.0) sec Sodium (137-145) mmol/L Potassium 3.1 L (3.5-5.1) mmol/L Chloride 111 H (98-107) mmol/L Carbon Dioxide 15 L (22-30) mmol/L BUN 166 H* (9-20) mg/dL Creatinine 2.56 H (0.66-1.25) mg/dL Glucose 131 H (74-99) mg/dL Magnesium 2.4 H (1.6-2.3) mg/dL Troponin I (0.000-0.034) ng/mL Ur Leukocyte Esterase (Negative) Urine Bacteria (None) /hpf Urine Mucus (None) /hpf Crossmatch Diabetes panel 11/28/23 11/29/23 Range/Units 18:02 08:31 Sodium 147 H 144 (137-145) mmol/L Potassium 2.8 L 3.1 L (3.5-5.1) mmol/L Chloride 105 111 H (98-107) mmol/L Carbon Dioxide 15 L 15 L (22-30) mmol/L BUN 200 H* 166 H* (9-20) mg/dL Creatinine 3.12 H 2.56 H (0.66-1.25) mg/dL Glucose 153 H 131 H (74-99) mg/dL Calcium 10.1 9.7 (8.4-10.2) mg/dL AST 28 (17-59) U/L ALT 20 (4-49) U/L Alkaline Phosphatase 92 (38-126) U/L Total Protein 6.4 (6.3-8.2) g/dL Albumin 3.8 (3.5-5.0) g/dL Calcium panel 11/28/23 11/29/23 Range/Units 18:02 08:31 Calcium 10.1 9.7 (8.4-10.2) mg/dL Albumin 3.8 (3.5-5.0) g/dL Pituitary panel 11/28/23 11/29/23 Range/Units 18:02 08:31 Sodium 147 H 144 (137-145) mmol/L Potassium 2.8 L 3.1 L (3.5-5.1) mmol/L Chloride 105 111 H (98-107) mmol/L Carbon Dioxide 15 L 15 L (22-30) mmol/L BUN 200 H* 166 H* (9-20) mg/dL Creatinine 3.12 H 2.56 H (0.66-1.25) mg/dL Glucose 153 H 131 H (74-99) mg/dL Calcium 10.1 9.7 (8.4-10.2) mg/dL Adrenal panel 11/28/23 11/29/23 Range/Units 18:02 08:31 Sodium 147 H 144 (137-145) mmol/L Potassium 2.8 L 3.1 L (3.5-5.1) mmol/L Chloride 105 111 H (98-107) mmol/L Carbon Dioxide 15 L 15 L (22-30) mmol/L BUN 200 H* 166 H* (9-20) mg/dL Creatinine 3.12 H 2.56 H (0.66-1.25) mg/dL Glucose 153 H 131 H (74-99) mg/dL Calcium 10.1 9.7 (8.4-10.2) mg/dL Total Bilirubin 0.7 (0.2-1.3) mg/dL AST 28 (17-59) U/L ALT 20 (4-49) U/L Alkaline Phosphatase 92 (38-126) U/L Total Protein 6.4 (6.3-8.2) g/dL Albumin 3.8 (3.5-5.0) g/dL
--- NOTE | 2023-11-29 14:52 | US ---
EXAMINATION TYPE: US kidneys/renal and bladder DATE OF EXAM: 11/29/2023 COMPARISON: NONE CLINICAL INDICATION: Male, 78 years old with history of jess; Patient denies any signs or symptoms at this time EXAM MEASUREMENTS: Right Kidney: 8.8 x 5.7 x 3.7 cm Left Kidney: 10.0 x 5.4 x 5.1 cm Post Void Residual Volume: NA mL Right Kidney: wnl Left Kidney: wnl Bladder: wnl Bilateral Jets seen: Yes Normal Post Void Residual: NA IMPRESSION: 1. No acute renal ultrasound abnormality.
--- NOTE | 2023-11-29 16:25 | CA ---
Transthoracic Echo Report Name: Darell Park Age: 78 Gender: M : 1945 Exam Date: 11/29/2023 15:56 Exam Location: [facility] Ht (in): 66 Wt (lb): 171 Ordering Physician: Cary Bradford Attending/Referring Phys: [id number], [place] [employer] Denny Cobian Procedure CPT: Indications: LV function Cardiac Hx: Technical Quality: Fair Contrast 1: Total Dose (mL): Contrast 2: Total Dose (mL): MEASUREMENTS (Male / Female) Normal Values 2D ECHO LV Diastolic Diameter PLAX 4.5 cm 4.2 - 5.9 / 3.9 - 5.3 cm LV Systolic Diameter PLAX 2.5 cm IVS Diastolic Thickness 1.1 cm 0.6 - 1.0 / 0.6 - 0.9 cm LVPW Diastolic Thickness 1.2 cm 0.6 - 1.0 / 0.6 - 0.9 cm LV Relative Wall Thickness 0.5 RV Internal Dim ED PLAX 3.5 cm LVOT Diameter 2.2 cm Aortic Root Diameter 2.8 cm LA Systolic Diameter LX 3.5 cm 3.0 - 4.0 / 2.7 - 3.8 cm LV Diastolic Volume MOD BP 53.9 cm??? 67 - 155 / 56 - 104 cm??? LV Systolic Volume MOD BP 19.2 cm??? 22 - 58 / 19 - 49 cm??? LV Ejection Fraction MOD BP 64.4 % >= 55 % LV Cardiac Index MOD BP 1847.7 cm???/min???m??? LV Diastolic Volume MOD 4C 45.1 cm??? LV Systolic Volume MOD 4C 17.8 cm??? LV Ejection Fraction MOD 4C 60.5 % LV Cardiac Index MOD 4C 1452.2 cm???/min???m??? LV Diastolic Length 4C 6.2 cm LV Systolic Length 4C 5.9 cm LV Diastolic Volume MOD 2C 58.7 cm??? LV Systolic Volume MOD 2C 20.3 cm??? LV Ejection Fraction MOD 2C 65.5 % LV Cardiac Index MOD 2C 2041.9 cm???/min???m??? LV Diastolic Length 2C 6.8 cm LV Systolic Length 2C 6.1 cm LA Volume 86.8 cm??? 18 - 58 / 22 - 52 cm??? LA Volume Index 45.3 cm???/m??? 16 - 28 cm???/m??? Ascending Aorta Diameter 2.3 cm DOPPLER AV Peak Velocity 168.8 cm/s AV Peak Gradient 11.4 mmHg LVOT Peak Velocity 123.1 cm/s LVOT Peak Gradient 6.1 mmHg LVOT Velocity Time Integral 23.9 cm LVOT Stroke Volume 87.1 cm??? LVOT Stroke Volume Index 46.5 ml/m??? LVOT Cardiac Index 4628.4 cm???/min???m??? AV Area Cont Eq pk 2.7 cm??? MV Peak Velocity 148.6 cm/s MV Peak Gradient 8.8 mmHg MV Mean Velocity 70.2 cm/s MV Mean Gradient 2.7 mmHg MV Velocity Time Integral 30.4 cm MR Peak Velocity 460.9 cm/s MR Peak Gradient 85.0 mmHg TR Peak Velocity 306.6 cm/s TR Peak Gradient 37.6 mmHg Right Ventricular Systolic Press 42.6 mmHg PV Peak Velocity 102.5 cm/s PV Peak Gradient 4.2 mmHg FINDINGS Left Ventricle Normal LV size. Mild concentric LVH. Left ventricular ejection fraction is estimated at 50-55 %. Right Ventricle Mild right ventricular dilatation. RVSP= 43mmHg. Right Atrium Mild to moderate right atrial dilatation. Left Atrium Moderate to severe left atrial dilatation. LA volume index=46ml/m2 Mitral Valve Mild thickening/calcification of the anterior mitral valve leaflet. Moderate MR. Aortic Valve Moderate AV calcification. AV peak gradient= 11.4mmHg. Tricuspid Valve Structurally normal tricuspid valve. Moderate TR. Pulmonic Valve Pulmonic valve not well visualized. No pulmonic regurgitation. Pericardium Not well visualized. Grossly unremarkable. Aorta Normal size aortic root and proximal ascending aorta. CONCLUSIONS Normal LV systolic function Moderate mitral regurgitation Previewed by: Dr. Ronnie Garcia MD (Electronically Signed) Final Date: 29 November 2023 16:24
[2023-11-29 20:07] LABS: Anisocytosis Slight; Basophils % (A) 0 %; Eosinophils % (A) 0 %; HCT 24.5 % (39.0-53.0); HGB 8.1 gm/dL (13.0-17.5); Hypochromasia Slight; Lymphocytes # (A) 0.8 k/uL (1.0-4.8); Lymphocytes % (A) 4 %; MCH 28.7 pg (25.0-35.0); MCV 86.8 fL (80.0-100.0); Mean Platelet Volume 8.5; Monocytes # (A) 0.7 k/uL (0-1.0); Monocytes % (A) 4 %; Neutrophils # (A) 16.2 k/uL (1.3-7.7); Neutrophils % (A) 91 %; Platelet Count 243 k/uL (150-450); Poikilocytosis Slight; RBC 2.83 m/uL (4.30-5.90); RDW 18.1 % (11.5-15.5); WBC 17.9 k/uL (3.8-10.6)
[2023-11-29] MEDS: PANTOPRAZOLE 40 MG/10 ML VIAL IVP SCH (20:37)
[2023-11-29] MEDS: traZODone HCL 50 MG TAB PO SCH (20:37)
[2023-11-29] MEDS: DOCUSATE 100 MG CAP PO SCH (20:37)
[2023-11-29] MEDS ORDERED: METOPROLOL SUCCINATE (ER) 50 MG TAB.ER.24H PO SCH (21:00)
--- NOTE | 2023-11-29 22:29 | HP ---
HISTORY AND PHYSICAL CHIEF COMPLAINT: Weakness. HISTORY OF PRESENT ILLNESS: This is a 78-year-old gentleman with a past medical history of CHF, atrial fibrillation, admitted to [facility] with complaints of significant weakness. The patient was found to have multiple abnormalities including atrial fibrillation with fast ventricular rate, acute on chronic anemia. Hemoglobin was 5.8. After transfusion, hemoglobin improved. There is no active bleeding at this time. Creatinine is also elevated indicating acute on chronic renal failure with IV fluids. The creatinine improved. Nephrology is following the patient closely. There is no history of any fever, rigors, or chills. Otherwise, troponin was found to be 0.054. COVID is not available. PAST MEDICAL HISTORY: Reviewed include atrial fibrillation, CHF, hypertension. Rest of the history and rest of the chart is also reviewed. HOME MEDICATIONS: Reviewed include metoprolol, dose and rest of medications reviewed. ALLERGIES: None. FAMILY HISTORY: History of lung cancer in the family. SOCIAL HISTORY: No history of smoking or alcohol intake. REVIEW OF SYSTEMS: A 14-point review of systems is negative except as mentioned earlier. PHYSICAL EXAMINATION: VITAL SIGNS: Pulse is 120 irregular, blood pressure 96/74, respirations 22. HEENT: Conjunctivae normal. NECK: No jugular venous distention. CARDIOVASCULAR: S1, S2. RESPIRATIONS: Breath sounds diminished at the bases bilaterally. Scattered rhonchi and crackles. ABDOMEN: Soft and nontender. LEGS: No edema. NERVOUS SYSTEM: Diffusely weak. SKIN: No ulcer, rash, bleeding. JOINTS: No active deforming arthropathy. LABORATORY DATA: Reviewed as before. Hemoglobin 5.8, improved to 7.4. Creatinine is 3.12, improved to 2.56. Rest of the labs also reviewed. ASSESSMENT: 1. Atrial fibrillation with rapid ventricular rate. 2. Generalized weakness for evaluation. 3. Acute on chronic kidney disease. 4. Chronic renal failure, stage IV. 5. Hypokalemia. 6. Acute on chronic anemia, etiology undetermined, rule out blood-loss anemia. 7. Elevated WBC. 8. Troponin 0.054. Rule out acute bco-JF-acphlua-elevation myocardial infarction. 9. Atrial fibrillation. 10.History of congestive heart failure. 11.History of pulmonary hypertension. RECOMMENDATIONS: Recommended to continue current management and continue symptomatic treatment, otherwise at this time, I would recommend follow closely with Cardiology. Chest x-ray showed no significant abnormality except cardiomegaly, but white count is elevated. We will obtain cultures and also get a COVID testing. Monitor fluid electrolyte balance closely. Closely follow with multiple consultants. See orders for details. Avoid nephrotoxic medications. Cardiology is following the patient closely. Further recommendations to follow. We will also recommend surgical evaluation for possible GI bleed and empiric antibiotics and obtain the cultures as well to rule out the possibility of any early sepsis. Once again, the prognosis guarded. Further recommendations to follow. Blood cultures and negative empiric antibiotics will be stopped. MMODL / IJN: [id number] /
[2023-11-29] MEDS: NYSTATIN 100,000 UNIT/GM POWD 15 GM TOPICAL SCH (23:32)
[2023-11-30] MEDS: DEXTROSE 5% IN WATER 1,000 ML with SODIUM BICARB (1 MEQ/ML) 150 ML IV SCH (01:20)
[2023-11-30] MEDS: DILTIAZEM 125 MG in SODIUM CHLORIDE 0.9% 100 ML IV SCH (01:20)
[2023-11-30] MEDS: DOCUSATE 100 MG CAP PO SCH ×2 (07:59→20:43)
[2023-11-30] MEDS: PANTOPRAZOLE 40 MG/10 ML VIAL IVP SCH ×2 (07:59→20:43)
[2023-11-30] MEDS: METOPROLOL SUCCINATE (ER) 100 MG TAB.ER.24H PO SCH ×2 (07:59→20:43)
[2023-11-30] MEDS: NYSTATIN 100,000 UNIT/GM POWD 15 GM TOPICAL SCH ×3 (08:00→20:43)
--- NOTE | 2023-11-30 09:05 | P.CONS ---
History of Present Illness - Reason for Consult Consult date: 11/29/23 Sepsis Requesting physician: Josie Avila - Chief Complaint Weakness x few days - History of Present Illness Patient is a 78-year-old male with a past medical history significant for hypertension heart failure with pulmonary hypertension and atrial fibrillation patient presenting to the ER for evaluation of weakness symptom has been progressive getting worse over the last few weeks and the patient also noticed to have black stools no idalia blood in the stools patient denies having any abdominal pain denies having any nausea or vomiting no headache or URI sym ptoms, no chest pain shortness of breath or cough patient has been on Eliquis that he takes for his atrial fibrillation however has not taking it for the last 2 days with the symptoms the patient was evaluated on presentation to the hospital patient was afebrile and no fever has been recorded subsequently patient was mildly tachycardic but not hypotensive or hypoxic he did have a white count of 17.8 hemoglobin of 5.8 for the patient has received transfusion did have elevated BUN and creatinine liver exams are normal troponin was mildly elevated urine dip shows large leukocyte Estrace and 5 WBC stool for occult blood was positive chest x-ray no acute cardiopulmonary disease process. Patient was started on Rocephin infectious disease was consulted the question of sepsis Review of Systems Positive point and negatives has been mentioned in the HPI, complete review of systems was performed and all other systems are negative Past Medical History Past Medical History: Atrial Fibrillation, Heart Failure, Hypertension Additional Past Medical History / Comment(s): pumonary HTN History of Any Multi-Drug Resistant Organisms: None Reported Past Surgical History: Ablation, Joint Replacement Additional Past Surgical History / Comment(s): Left hip Past Anesthesia/Blood Transfusion Reactions: No Reported Reaction Past Psychological History: No Psychological Hx Reported Smoking Status: Never smoker Past Alcohol Use History: None Reported Past Drug Use History: None Reported - Past Family History Mother Family Medical History: Cancer Additional Family Medical History / Comment(s): lung cancer, heavy smoker: mother had TB when patient was 12 Father Family Medical History: Cancer Additional Family Medical History / Comment(s): lung cancer, heavy smoker Medications and Allergies Home Medications Medication Instructions Recorded Confirmed Type Apixaban [Eliquis] 5 mg PO BID 07/21/23 11/28/23 History Docusate Sodium [Dok] 100 mg PO BID 11/28/23 11/28/23 History Furosemide [Lasix] 20 mg PO BID 11/28/23 11/28/23 History Losartan Potassium 50 mg PO DAILY 11/28/23 11/28/23 History Metoprolol Succinate [Toprol XL] 50 mg PO HS 11/28/23 11/28/23 History Metoprolol Succinate [Toprol XL] 100 mg PO DAILY 11/28/23 11/28/23 History Torsemide [Demadex] 20 mg PO BID 11/28/23 11/28/23 History methocarbamoL [Robaxin] 500 mg PO TID PRN 11/28/23 11/28/23 History traZODone HCL [Desyrel] 100 mg PO HS 11/28/23 11/28/23 History Allergies Allergy/AdvReac Type Severity Reaction Status Date / Time No Known Allergies Allergy Verified 11/28/23 20:13 Physical Exam Vitals: Vital Signs Temp Pulse Pulse Resp BP BP Pulse Ox 11/29/23 12:03 105/56 11/29/23 10:40 120 H 96/74 11/29/23 09:07 120 H 22 106/86 99 11/29/23 08:57 105/74 11/29/23 08:56 118 H 22 94/75 99 11/29/23 08:45 116 H 22 124/71 99 11/29/23 08:36 147 H 25 H 139/76 100 11/29/23 01:43 97.3 F L 117 H 20 112/78 100 11/28/23 23:42 97.5 F L 118 H 20 125/70 100 11/28/23 23:22 97.2 F L 129 H 20 126/70 100 11/28/23 23:16 97.3 F L 133 H 20 126/60 100 11/28/23 22:27 97.9 F 126 H 20 119/54 100 11/28/23 19:59 97.9 F 125 H 20 117/68 100 11/28/23 19:39 97.2 F L 122 H 22 116/59 96 11/28/23 19:29 97.4 F L 124 H 22 107/67 96 11/28/23 17:57 97.0 F L 129 H 20 118/101 95 Intake and Output 11/28/23 11/29/23 11/29/23 22:59 06:59 14:59 Intake Total 310 310 111.750 Balance 310 310 111.750 Intake: Intake, IV Titration 111.750 Amount Diltiazem 125 mg In 111.750 Sodium Chloride 0.9% 100 ml @ 5 MG/HR 5 mls/hr IV .Q24H [facility] Rx#:[id number] Blood Product 310 310 Rc As-1 Unit 310 [id number] Rc As-1 Unit 310 [id number] Other: Weight 77.836 kg GENERAL DESCRIPTION: Elderly male lying in bed, no distress. No tachypnea or accessory muscle of respiration use. HEENT: Shows Pallor , no scleral icterus. Oral mucous membrane is dry. NECK: Trachea central, no thyromegaly. LUNGS: Unlabored breathing. Clear to auscultation anteriorly. No wheeze or crackle. HEART: S1, S2, regular rate and rhythm. No loud murmur ABDOMEN: Soft, no tenderness , guarding or rigidity, EXTREMITIES: No edema of feet. SKIN: No rash, no masses palpable. NEUROLOGICAL: The patient is awake, alert, oriented x3, mood and affect normal. Results CBC & Chem 7: 12/04/23 10:20 12/04/23 10:20 Labs: Abnormal Lab Results - Last 24 Hours (Table) 11/28/23 11/28/23 11/28/23 Range/Units 18:00 18:02 18:02 WBC 17.8 H (3.8-10.6) k/uL RBC 2.07 L (4.30-5.90) m/uL Hgb 5.8 L* (13.0-17.5) gm/dL Hct 17.9 L* (39.0-53.0) % RDW 21.3 H (11.5-15.5) % Neutrophils # 16.5 H (1.3-7.7) k/uL Lymphocytes # 0.7 L (1.0-4.8) k/uL PT 13.1 H (10.0-12.5) sec INR 1.2 H (<1.2) APTT 21.3 L (22.0-30.0) sec Sodium (137-145) mmol/L Potassium (3.5-5.1) mmol/L Chloride (98-107) mmol/L Carbon Dioxide (22-30) mmol/L BUN (9-20) mg/dL Creatinine (0.66-1.25) mg/dL Glucose (74-99) mg/dL Magnesium (1.6-2.3) mg/dL Troponin I (0.000-0.034) ng/mL Ur Leukocyte Esterase (Negative) Urine Bacteria (None) /hpf Urine Mucus (None) /hpf Crossmatch See Detail 11/28/23 11/28/23 11/28/23 Range/Units 18:02 18:02 18:57 WBC (3.8-10.6) k/uL RBC (4.30-5.90) m/uL Hgb (13.0-17.5) gm/dL Hct (39.0-53.0) % RDW (11.5-15.5) % Neutrophils # (1.3-7.7) k/uL Lymphocytes # (1.0-4.8) k/uL PT (10.0-12.5) sec INR (<1.2) APTT (22.0-30.0) sec Sodium 147 H (137-145) mmol/L Potassium 2.8 L (3.5-5.1) mmol/L Chloride (98-107) mmol/L Carbon Dioxide 15 L (22-30) mmol/L BUN 200 H* (9-20) mg/dL Creatinine 3.12 H (0.66-1.25) mg/dL Glucose 153 H (74-99) mg/dL Magnesium 2.5 H (1.6-2.3) mg/dL Troponin I 0.054 H* (0.000-0.034) ng/mL Ur Leukocyte Esterase Large H (Negative) Urine Bacteria Rare H (None) /hpf Urine Mucus Rare H (None) /hpf Crossmatch 11/29/23 11/29/23 11/29/23 Range/Units 02:23 08:31 08:31 WBC 17.1 H 17.8 H (3.8-10.6) k/uL RBC 2.45 L 2.59 L (4.30-5.90) m/uL Hgb 7.2 L 7.4 L (13.0-17.5) gm/dL Hct 21.7 L 22.9 L (39.0-53.0) % RDW 18.3 H 18.4 H (11.5-15.5) % Neutrophils # 15.3 H (1.3-7.7) k/uL Lymphocytes # 0.7 L (1.0-4.8) k/uL PT (10.0-12.5) sec INR (<1.2) APTT (22.0-30.0) sec Sodium (137-145) mmol/L Potassium 3.1 L (3.5-5.1) mmol/L Chloride 111 H (98-107) mmol/L Carbon Dioxide 15 L (22-30) mmol/L BUN 166 H* (9-20) mg/dL Creatinine 2.56 H (0.66-1.25) mg/dL Glucose 131 H (74-99) mg/dL Magnesium 2.4 H (1.6-2.3) mg/dL Troponin I (0.000-0.034) ng/mL Ur Leukocyte Esterase (Negative) Urine Bacteria (None) /hpf Urine Mucus (None) /hpf Crossmatch Assessment and Plan (1) SIRS (systemic inflammatory response syndrome) Status: Acute Code(s): R65.10 - SIRS OF NON-INFECTIOUS ORIGIN W/O ACUTE ORGAN DYSFUNCTION SNOMED Code(s): 488594727 (2) UTI (urinary tract infection) Status: Acute Code(s): N39.0 - URINARY TRACT INFECTION, SITE NOT SPECIFIED SNOMED Code(s): 00897752 Plan: 1patient with SIRS in this patient who did have elevated white count and tachycardia source possible GI bleed as the patient did have a tarry stools and did have hemoglobin of 5.8 patient is currently not running any fever chest x- ray was reported negative urine did show positive leukocyte Estrace possible component of UTI not entirely excluded 2-we will check inflammatory markers and follow-up on the blood cultures 3-continue with Rocephin while waiting for the workup to be completed We will follow on clinical condition and cultures to further adjust medication if needed Thank you for this consultation we will follow the patient along with you Dictation was produced using [employer] software. please excuse any grammatical, word or spelling errors. Time with Patient: Greater than 30
[2023-11-30 09:21] LABS: Anisocytosis Slight; HCT 22.4 % (39.0-53.0); HGB 7.6 gm/dL (13.0-17.5); Hypochromasia Slight; MCH 29.3 pg (25.0-35.0); MCHC 33.8 g/dL (31.0-37.0); MCV 86.6 fL (80.0-100.0); Mean Platelet Volume 9.8; Platelet Count 210 k/uL (150-450); Poikilocytosis Slight; RBC 2.59 m/uL (4.30-5.90); WBC 16.7 k/uL (3.8-10.6)
[2023-11-30 09:47] LABS: African American GFR (CKD) 39 (>60 ml/min/1.73 sqM); Anion Gap 14 mmol/L; Calcium 9.4 mg/dL (8.4-10.2); Carbon Dioxide 23 mmol/L (22-30); Chloride 107 mmol/L (98-107); Glucose 158 mg/dL (74-99); Magnesium 2.3 mg/dL (1.6-2.3); Non-African American GFR(CKD) 33 (>60 ml/min/1.73 sqM); Sodium 144 mmol/L (137-145)
[2023-11-30 10:04] LABS: Potassium 2.7 mmol/L (3.5-5.1)
[2023-11-30 10:05] LABS: Blood Urea Nitrogen 113 mg/dL (9-20)
[2023-11-30] MEDS ORDERED: POTASSIUM CHLORIDE ER 20 MEQ TAB.ER PO STA (10:17)
[2023-11-30] MEDS: POTASSIUM CHLORIDE 10 MEQ in WATER FOR INJECTION 1 100ML.BAG IVPB SCH ×4 (10:33→13:43)
[2023-11-30] MEDS: CLOTRIMAZOLE 1% CREAM 30 GM TUBE TOPICAL SCH ×2 (10:37→20:43)
[2023-11-30] MEDS: LACTATED RINGERS 1,000 ML IV SCH ×2 (10:40→23:06)
--- NOTE | 2023-11-30 11:02 | P.PN ---
Subjective Progress Note Date: 11/30/23 CHIEF COMPLAINT: GI bleeding HISTORY OF PRESENT ILLNESS: Patient has had no further black stools. He's r eceived a total of 3 units of blood. Hemoglobin on admission is 5.8 he did go up to 8.1 and is currently 7.6. WBC down from 17-16 potassium 2.7 and is being replaced. Lactic 1.5 Afebrile. No longer tachycardic. Patient denies any abdominal pain. Denies any nausea or vomiting. PHYSICAL EXAM: VITAL SIGNS: Reviewed. GENERAL: Well-developed in no acute distress. ABDOMEN: Soft. Nondistended. Nontender. NEUROLOGIC: Alert and oriented. Cranial nerves II through XII grossly intact. ASSESSMENT: 1. Acute GI bleed with melanotic stools 2. Acute blood loss anemia secondary GI bleed 3. History of atrial fibrillation on Eliquis at home 4. Hypokalemia. K being replaced PLAN: -Patient scheduled for EGD tomorrow with Dr. Lyles -Nothing by mouth after midnight -Continue IV Protonix -Continue to correct potassium -Hold Eliquis Physician Manager Electronic note has been reviewed by physician. Signing provider agrees with the documented findings, assessment, and plan of care. Objective - Vital Signs Vital signs: Vital Signs Temp 98.6 F 11/30/23 07:58 Pulse 87 11/30/23 07:58 Resp 17 11/30/23 07:58 BP 100/70 11/30/23 07:58 Pulse Ox 96 11/30/23 07:58 FiO2 Intake & Output 11/29/23 11/30/23 11/30/23 18:59 06:59 18:59 Intake Total 421.750 125 Output Total 300 3900 Balance 121.750 -3775 Weight 77.836 kg Intake: Intake, IV Titration 111.750 125 Amount Diltiazem 125 mg In 111.750 125 Sodium Chloride 0.9% 100 ml @ 5 MG/HR 5 mls/hr IV .Q24H [facility] Rx#:[id number] Blood Product 310 Rc As-1 Unit 310 [id number] Output: Urine 300 3900 Uretheral (Daniels) 2600 Other: Voiding Method Diaper Urinal Indwelling Catheter Incontinent Indwelling Catheter # Voids 3 1 - Labs CBC & Chem 7: 11/30/23 08:03 11/30/23 08:03 Labs: Abnormal Lab Results - Last 24 Hours (Table) 11/28/23 11/29/23 11/30/23 Range/Units 18:00 19:20 08:03 WBC 17.9 H (3.8-10.6) k/uL RBC 2.83 L (4.30-5.90) m/uL Hgb 8.1 L (13.0-17.5) gm/dL Hct 24.5 L (39.0-53.0) % RDW 18.1 H (11.5-15.5) % Neutrophils # 16.2 H (1.3-7.7) k/uL Lymphocytes # 0.8 L (1.0-4.8) k/uL Potassium 2.7 L* (3.5-5.1) mmol/L BUN 113 H* (9-20) mg/dL Creatinine 1.91 H (0.66-1.25) mg/dL Glucose 158 H (74-99) mg/dL Crossmatch See Detail 11/30/23 Range/Units 08:03 WBC 16.7 H (3.8-10.6) k/uL RBC 2.59 L (4.30-5.90) m/uL Hgb 7.6 L (13.0-17.5) gm/dL Hct 22.4 L (39.0-53.0) % RDW 18.0 H (11.5-15.5) % Neutrophils # (1.3-7.7) k/uL Lymphocytes # (1.0-4.8) k/uL Potassium (3.5-5.1) mmol/L BUN (9-20) mg/dL Creatinine (0.66-1.25) mg/dL Glucose (74-99) mg/dL Crossmatch
[2023-11-30 11:53] LABS: Lymphocytes # (M) 0.84 k/uL (1.0-4.8); Monocytes # (M) 0.67 k/uL (0-1.0); Neutrophils % (M) 91 %; Nucleated Red Blood Cells 0 /100 WBC (0-0); Total Cells Counted 100
--- NOTE | 2023-11-30 12:27 | P.PN ---
Subjective HISTORY OF PRESENT ILLNESS: This is a 78-year-old male with a past medical history significant for persistent atrial fibrillation, congestive heart failure, hypertension, and chronic anemia. Patient follows with a alumni coordinator out of [facility]. We have been asked to see the patient in consultation for A. fib with RVR. Patient examined at the bedside in the emergency room. The patient states he presented to the hospital for chief complaint of weakness. He denied having any chest pain or pressure. He denies any shortness of breath. Patient was found to be anemic with a hemoglobin of 5.8. He received RBC transfusion. Hemoglobin this morning is 7.4. He does report a history of anemia but he is somewhat of a poor historian and is unable to recall if he has had anemia workup in the past. He is prescribed Eliquis on an outpatient basis. He denies any blood in his stools or black tarry stools. Denies any hematuria. The patient was also found to be in A. fib with RVR. He was started on IV Cardizem. At the time of examination, he remains in atrial fibrillation with a heart rate around 120. He denies any previous history of coronary artery disease. * EKG reveals A. fib with RVR. Right bundle-branch block. PVCs. * Chest xray negative for acute process * Laboratory data: Hemoglobin 7.4. W BC 17.8. BUN 166. Creatinine 2.56. Troponin 0.054. ProBNP 16,000. * Current home cardiac medications include Eliquis 5 mg twice a day, Lasix 20 mg twice a day, Demadex 20 mg twice a day, metoprolol succinate 100 mg in the morning and 50 mg at night * Most recent echocardiogram obtained in July 2023 revealing ejection fraction 50%, severe pulmonary hypertension, moderate to severe mitral regurgitation, extremely calcified aortic valves, difficult to exclude bicuspid aortic valve. 11/30/2023 Patient examined this morning at the bedside. Patient denies chest pain or pressure. He denies shortness of breath. Telemetry reveals atrial fibrillation with a heart rate in the 80s. He remains on IV Cardizem at 10 mg an hour. Hemoglobin today is 7.6. Patient is scheduled to undergo endoscopy tomorrow with general surgery. His anticoagulation remains on hold. Echocardiogram c ompleted revealing ejection fraction 50-55%, moderate MR, moderate TR PHYSICAL EXAM: VITAL SIGNS: Reviewed. GENERAL: Well-developed in no acute distress. HEENT: Head is normocephalic. Pupils are equal, round. Sclerae anicteric. Mucous membranes of the mouth are moist. Neck supple. No JVD or thyromegaly LUNGS: Respirations even and unlabored. Lungs essentially clear to auscultation bilaterally. HEART: Irregular rate and rhythm. S1 and S2 heard. ABDOMEN: Soft. Nondistended. Nontender. EXTREMITIES: Normal range of motion. No clubbing or cyanosis. Peripheral pulses intact. No lower extremity edema NEUROLOGIC: Awake and alert. Oriented x 3. ASSESSMENT: Generalized weakness Persistent atrial fibrillation with RVR Acute on chronic anemia, etiology unclear Acute kidney injury Hypokalemia History of atrial fibrillation ablation, approximately 4 years ago History of congestive heart failure with preserved ejection fraction, 50% PLAN: Discontinue IV Cardizem Increase metoprolol to 100 mg twice a day Continue telemetry monitoring Hold anticoagulation secondary to anemia Patient scheduled to undergo endoscopy tomorrow with general surgery Patient prescribed Demadex and Lasix on an outpatient basis. Unsure if patient was taking both of these medications at home. Continue to hold diuretics at this time Continue to hold losartan secondary to acute kidney injury Replace potassium Further recommendations pending patient's course Nurse practitioner note has been reviewed by physician. Signing provider agrees with the documented findings, assessment, and plan of care. Objective - Vital Signs Vital signs: Vital Signs Temp 98.6 F 11/30/23 07:58 Pulse 87 11/30/23 07:58 Resp 17 11/30/23 07:58 BP 100/70 11/30/23 07:58 Pulse Ox 96 11/30/23 07:58 FiO2 Intake & Output 11/29/23 11/30/23 11/30/23 18:59 06:59 18:59 Intake Total 421.750 125 Output Total 300 3900 800 Balance 121.750 -3775 -800 Weight 77.836 kg Intake: Intake, IV Titration 111.750 125 Amount Diltiazem 125 mg In 111.750 125 Sodium Chloride 0.9% 100 ml @ 5 MG/HR 5 mls/hr IV .Q24H [facility] Rx#:[id number] Blood Product 310 Rc As-1 Unit 310 [id number] Output: Urine 300 3900 800 Uretheral (Daniels) 2600 Other: Voiding Method Diaper Urinal Indwelling Catheter Incontinent Indwelling Catheter # Voids 3 1 - Labs CBC & Chem 7: 11/30/23 08:03 11/30/23 08:03 Labs: Abnormal Lab Results - Last 24 Hours (Table) 11/28/23 11/29/23 11/30/23 Range/Units 18:00 19:20 08:03 WBC 17.9 H (3.8-10.6) k/uL RBC 2.83 L (4.30-5.90) m/uL Hgb 8.1 L (13.0-17.5) gm/dL Hct 24.5 L (39.0-53.0) % RDW 18.1 H (11.5-15.5) % Neutrophils # 16.2 H (1.3-7.7) k/uL Lymphocytes # 0.8 L (1.0-4.8) k/uL Potassium 2.7 L* (3.5-5.1) mmol/L BUN 113 H* (9-20) mg/dL Creatinine 1.91 H (0.66-1.25) mg/dL Glucose 158 H (74-99) mg/dL Crossmatch See Detail 11/30/23 Range/Units 08:03 WBC 16.7 H (3.8-10.6) k/uL RBC 2.59 L (4.30-5.90) m/uL Hgb 7.6 L (13.0-17.5) gm/dL Hct 22.4 L (39.0-53.0) % RDW 18.0 H (11.5-15.5) % Neutrophils # (1.3-7.7) k/uL Lymphocytes # (1.0-4.8) k/uL Potassium (3.5-5.1) mmol/L BUN (9-20) mg/dL Creatinine (0.66-1.25) mg/dL Glucose (74-99) mg/dL Crossmatch
--- NOTE | 2023-11-30 12:29 | P.PN ---
Subjective Patient is seen for follow-up for acute kidney injury and severe hypokalemia. Patient had significant urine retention with 2.6 L of urine documented when Daniels catheter was placed. The ultrasound however showed the bladder to be within normal limits but bedside bladder scan noted more than 900 mL of urine in the bladder. Overall patient states he is feeling better. Currently maintained on IV bicarb Serum creatinine is down to 1.9 from 3.1 on admission. Objective - Vital Signs Vital signs: Vital Signs Temp 98.6 F 11/30/23 07:58 Pulse 87 11/30/23 07:58 Resp 17 11/30/23 07:58 BP 100/70 11/30/23 07:58 Pulse Ox 96 11/30/23 07:58 FiO2 Intake & Output 11/29/23 11/30/23 11/30/23 18:59 06:59 18:59 Intake Total 421.750 125 Output Total 300 3900 800 Balance 121.750 -3775 -800 Weight 77.836 kg Intake: Intake, IV Titration 111.750 125 Amount Diltiazem 125 mg In 111.750 125 Sodium Chloride 0.9% 100 ml @ 5 MG/HR 5 mls/hr IV .Q24H [facility] Rx#:[id number] Blood Product 310 Rc As-1 Unit 310 [id number] Output: Urine 300 3900 800 Uretheral (Daniels) 2600 Other: Voiding Method Diaper Urinal Indwelling Catheter Incontinent Indwelling Catheter # Voids 3 1 - Exam Patient is awake, comfortable, no acute distress Examination of the heart S1 and S2 Examination of the lungs bilateral breath sounds are heard Abdomen is soft nontender Examination of lower extremities shows no significant edema TRIM MACHINE OPERATOR exam grossly intact - Labs CBC & Chem 7: 11/30/23 08:03 11/30/23 08:03 Labs: Abnormal Lab Results - Last 24 Hours (Table) 11/28/23 11/29/23 11/30/23 Range/Units 18:00 19:20 08:03 WBC 17.9 H (3.8-10.6) k/uL RBC 2.83 L (4.30-5.90) m/uL Hgb 8.1 L (13.0-17.5) gm/dL Hct 24.5 L (39.0-53.0) % RDW 18.1 H (11.5-15.5) % Neutrophils # 16.2 H (1.3-7.7) k/uL Lymphocytes # 0.8 L (1.0-4.8) k/uL Potassium 2.7 L* (3.5-5.1) mmol/L BUN 113 H* (9-20) mg/dL Creatinine 1.91 H (0.66-1.25) mg/dL Glucose 158 H (74-99) mg/dL Crossmatch See Detail 11/30/23 Range/Units 08:03 WBC 16.7 H (3.8-10.6) k/uL RBC 2.59 L (4.30-5.90) m/uL Hgb 7.6 L (13.0-17.5) gm/dL Hct 22.4 L (39.0-53.0) % RDW 18.0 H (11.5-15.5) % Neutrophils # (1.3-7.7) k/uL Lymphocytes # (1.0-4.8) k/uL Potassium (3.5-5.1) mmol/L BUN (9-20) mg/dL Creatinine (0.66-1.25) mg/dL Glucose (74-99) mg/dL Crossmatch Assessment and Plan Assessment: 1. Acute kidney injury, ATN currently nonoliguric secondary to hypotension in the setting of use of angiotensin receptor blockers and severe anemia. Also element of significant urine retention status post Daniels catheter placement. Currently improving. B UN is disproportionately elevated secondary to most likely underlying GI bleed. UA is completely benign 2. Severe anemia rule out GI bleed. Patient was maintained on eliquis. 3. Hypokalemia associated with use of diuretics and decreased oral intake 4. Hypotension, hypovolemic and secondary to severe anemia. 5. Anion gap metabolic acidosis associated with acute kidney injury and hypotension 6. Hypernatremia so sedated with free water deficit and use of diuretics 7. Chronic kidney disease NKF stage IV secondary to nephrosclerosis with previous creatinine 1.8 in July 2023. Plan: DC IV bicarb Switch to Ringer lactate Replace potassium Repeat labs in a.m. Continue with Daniels catheter Check with radiology to take a second look at the ultrasound film from yesterday in regards to urine retention.
[2023-11-30 15:50] LABS: Anisocytosis Slight; Basophils % (A) 0 %; Eosinophils % (A) 0 %; HCT 22.8 % (39.0-53.0); HGB 7.6 gm/dL (13.0-17.5); Hypochromasia Slight; Lymphocytes # (A) 0.8 k/uL (1.0-4.8); Lymphocytes % (A) 5 %; MCH 28.7 pg (25.0-35.0); MCHC 33.2 g/dL (31.0-37.0); MCV 86.3 fL (80.0-100.0); Mean Platelet Volume 10.4; Monocytes # (A) 1.1 k/uL (0-1.0); Monocytes % (A) 6 %; Neutrophils # (A) 15.6 k/uL (1.3-7.7); Neutrophils % (A) 88 %; Platelet Count 194 k/uL (150-450); Poikilocytosis Slight; RBC 2.65 m/uL (4.30-5.90); RDW 17.8 % (11.5-15.5); WBC 17.7 k/uL (3.8-10.6)
[2023-11-30] MEDS: traZODone HCL 50 MG TAB PO SCH (20:43)
[2023-12-01] MEDS: LACTATED RINGERS 1,000 ML IV SCH (03:44)
[2023-12-01 05:50] LABS: Glucose,Whole Blood 136 mg/dL (70-110)
[2023-12-01] MEDS: ACETAMINOPHEN SUPPOSITORY 650 MG SUPP RECTAL PRN (06:46)
[2023-12-01] MEDS: PIPERACILLIN-TAZOBACTAM 3.375 GM in SODIUM CHLORIDE 0.9% 100 ML IVPB SCH ×2 (07:43→15:14)
[2023-12-01] MEDS: DOCUSATE 100 MG CAP PO SCH ×2 (07:44→21:19)
[2023-12-01] MEDS: PANTOPRAZOLE 40 MG/10 ML VIAL IVP SCH ×2 (07:44→21:19)
[2023-12-01] MEDS: METOPROLOL SUCCINATE (ER) 100 MG TAB.ER.24H PO SCH ×2 (07:44→21:19)
[2023-12-01] MEDS: NYSTATIN 100,000 UNIT/GM POWD 15 GM TOPICAL SCH ×3 (07:44→21:18)
[2023-12-01] MEDS: CLOTRIMAZOLE 1% CREAM 30 GM TUBE TOPICAL SCH ×2 (07:44→21:18)
--- NOTE | 2023-12-01 07:52 | PN ---
PROGRESS NOTE DATE OF SERVICE: 11/30/2023 SUBJECTIVE: This 78-year-old gentleman admitted with atrial ablation with fast ventricular rate, also had significant melenic stools and anemia. The patient received 3 units of transfusion. Hemoglobin is still only 7.6. They have discussed with [facility] for further transportation and GI not available at this time. Potassium is 2.2, which is being corrected, and the patient will be closely monitored in ICU. Multiple consultants are following the patient closely. PAST MEDICAL HISTORY: Reviewed. REVIEW OF SYSTEMS: A 14-point review is negative except as mentioned earlier. CURRENT MEDICATIONS: Reviewed include Robaxin, dose and rest of medications noted. PHYSICAL EXAMINATION: VITAL SIGNS: Pulse is 85, blood pressure 104/63, and respirations 14. HEENT: Conjunctivae normal. NECK: No jugular venous distention. CARDIOVASCULAR: S1, S2 muffled RESPIRATIONS: Diminished at the bases. ABDOMEN: Soft, nontender. No mass palpable. No guarding, no rigidity. Bowel sounds diminished. LEGS: No edema, no swelling. NEUROLOGIC: Nonfocal. LABORATORY DATA: WBC 16, hemoglobin 7.6. ASSESSMENT: 1. Atrial fibrillation/rapid ventricular rate. 2. Possible GI bleed with acute blood loss anemia, status post 3 units of transfusion. 3. Generalized weakness. 4. Acute on chronic kidney disease. 5. Chronic renal failure, stage IV. 6. Hypokalemia. 7. Increased WBC. 8. Troponin 0.054. Rule out acute aga-XN-bteadbp myocardial infarction. 9. Atrial fibrillation history. 10.History of CHF. 11.History of pulmonary hypertension. 12.Full code. RECOMMENDATIONS: Recommended to continue current management, continue symptomatic treatment. Replace potassium. Continue to monitor. H and H q.6 hours and transfuse periodically. As mentioned earlier, [facility] has accepted the transfer. We will transfer and hold off any antiplatelets or anticoagulants. Prognosis is extremely guarded because of multiple complex medical issues as mentioned earlier. Empiric antibiotics also being given. Further recommendations to follow. Monitor blood pressure closely. MMODL / IJN: [id number] /
[2023-12-01 07:58] LABS: ALT 34 U/L (4-49); AST 39 U/L (17-59); African American GFR (CKD) 48 (>60 ml/min/1.73 sqM); Albumin 2.9 g/dL (3.5-5.0); Alkaline Phosphatase 96 U/L (38-126); Anion Gap 11 mmol/L; Blood Urea Nitrogen 82 mg/dL (9-20); Calcium 9.5 mg/dL (8.4-10.2); Carbon Dioxide 25 mmol/L (22-30); Chloride 111 mmol/L (98-107); Glucose 122 mg/dL (74-99); Non-African American GFR(CKD) 41 (>60 ml/min/1.73 sqM); Potassium 3.6 mmol/L (3.5-5.1); Sodium 147 mmol/L (137-145); Total Bilirubin 0.9 mg/dL (0.2-1.3); Total Protein 5.4 g/dL (6.3-8.2)
[2023-12-01 08:06] LABS: Anisocytosis Slight; Basophils % (A) 0 %; Eosinophils % (A) 0 %; HCT 27.6 % (39.0-53.0); Hypochromasia Slight; Lymphocytes # (A) 0.8 k/uL (1.0-4.8); Lymphocytes % (A) 4 %; MCH 29.2 pg (25.0-35.0); MCHC 32.7 g/dL (31.0-37.0); MCV 89.1 fL (80.0-100.0); Monocytes % (A) 5 %; Neutrophils % (A) 91 %; Platelet Count 213 k/uL (150-450); Poikilocytosis Slight; WBC 22.1 k/uL (3.8-10.6)
[2023-12-01 08:29] LABS: C Reactive Protein 23.2 mg/dL (<1.0)
--- NOTE | 2023-12-01 08:32 | XR ---
EXAMINATION TYPE: XR chest 1V portable DATE OF EXAM: 12/01/2023 COMPARISON: 11/28/2023 INDICATION: Pneumonia TECHNIQUE: Single frontal view of the chest is obtained. FINDINGS: The heart size is enlarged. The pulmonary vasculature is normal. The lungs are clear. IMPRESSION: 1. No acute pulmonary process. 2. cardiomegaly
[2023-12-01] MEDS ORDERED: PROPOFOL 10 MG/ML 20 ML VIAL IV ONE (08:39)
[2023-12-01] MEDS ORDERED: IV FLUID CONTINUATION 1,000 ML IV ONE (08:39)
--- NOTE | 2023-12-01 09:03 | P.OP ---
Date of Procedure: 12/01/23 Preoperative Diagnosis: GI bleed Postoperative Diagnosis: Antral gastritis No evidence of upper GI bleed Procedure(s) Performed: EGD Anesthesia: MAC Surgeon: Donnell Lyles Pathology: other (Antrum) Condition: stable Disposition: PACU Description of Procedure: Patient's placed on the endoscopy table in the lateral position. He received IV sedation. The gastro-/oropharynx passed in the esophagus and stomach. Scope then placed through the pylorus. The first and second portion of the duodenum appeared normal. Scope was then brought back the antrum this. Mildly inflamed. A biopsies performed. Scope was then retroflexed and the remainder the stomach appeared normal. There is no evidence of any active upper GI bleed. There is no significant ulceration. The gastritis was quite minimal. The GE junction was at 40 cm per the distal esophagus appeared normal. Proximal esophagus.. Scope withdrawn for patient.
[2023-12-01] MEDS: SODIUM CHLORIDE 0.45% 1,000 ML IV SCH (12:07)
--- NOTE | 2023-12-01 12:35 | P.PN ---
Subjective Patient is seen for follow-up for acute kidney injury and severe hypokalemia. COVID positive Noted to have significant urine retention, currently with indwelling Daniels catheter. Overall patient states he is feeling better. Maintained on IV fluids. Serum creatinine is down to 1.6 from 3.1 on admission. Objective - Vital Signs Vital signs: Vital Signs Temp 97.7 F 12/01/23 11:25 Pulse 91 12/01/23 11:25 Resp 15 12/01/23 11:25 BP 90/54 12/01/23 11:25 Pulse Ox 97 12/01/23 11:25 FiO2 Intake & Output 11/30/23 12/01/23 12/01/23 18:59 06:59 18:59 Intake Total 118 310 200 Output Total 1850 700 Balance -1732 310 -500 Intake: IV 200 Oral 118 Blood Product 0 310 Rc As-1 Unit 0 310 [id number] Output: Urine 1850 700 Other: Voiding Method Indwelling Catheter Indwelling Catheter Indwelling Catheter - Exam Patient is awake, comfortable, no acute distress Examination of the heart S1 and S2 Examination of the lungs bilateral breath sounds are heard Abdomen is soft nontender Examination of lower extremities shows no significant edema BOTTOM BRUSHER exam grossly intact - Labs CBC & Chem 7: 12/01/23 07:00 12/01/23 07:26 Labs: Abnormal Lab Results - Last 24 Hours (Table) 11/28/23 11/30/23 11/30/23 Range/Units 18:00 08:03 15:14 WBC 17.7 H (3.8-10.6) k/uL RBC 2.65 L (4.30-5.90) m/uL Hgb 7.6 L (13.0-17.5) gm/dL Hct 22.8 L (39.0-53.0) % RDW 17.8 H (11.5-15.5) % Neutrophils # 15.6 H (1.3-7.7) k/uL Neutrophils # (Manual) 15.20 H (1.3-7.7) k/uL Lymphocytes # 0.8 L (1.0-4.8) k/uL Lymphocytes # (Manual) 0.84 L (1.0-4.8) k/uL Monocytes # 1.1 H (0-1.0) k/uL Sodium (137-145) mmol/L Potassium (3.5-5.1) mmol/L Chloride (98-107) mmol/L BUN (9-20) mg/dL Creatinine (0.66-1.25) mg/dL Glucose (74-99) mg/dL POC Glucose (mg/dL) (70-110) mg/dL C-Reactive Protein (<1.0) mg/dL Total Protein (6.3-8.2) g/dL Albumin (3.5-5.0) g/dL Procalcitonin (0.02-0.09) ng/mL SARS-CoV-2 (PCR) (Not Detectd) Crossmatch See Detail 11/30/23 12/01/23 12/01/23 Range/Units 17:26 05:48 06:04 WBC (3.8-10.6) k/uL RBC (4.30-5.90) m/uL Hgb (13.0-17.5) gm/dL Hct (39.0-53.0) % RDW (11.5-15.5) % Neutrophils # (1.3-7.7) k/uL Neutrophils # (Manual) (1.3-7.7) k/uL Lymphocytes # (1.0-4.8) k/uL Lymphocytes # (Manual) (1.0-4.8) k/uL Monocytes # (0-1.0) k/uL Sodium (137-145) mmol/L Potassium 3.4 L (3.5-5.1) mmol/L Chloride (98-107) mmol/L BUN (9-20) mg/dL Creatinine (0.66-1.25) mg/dL Glucose (74-99) mg/dL POC Glucose (mg/dL) 136 H (70-110) mg/dL C-Reactive Protein (<1.0) mg/dL Total Protein (6.3-8.2) g/dL Albumin (3.5-5.0) g/dL Procalcitonin (0.02-0.09) ng/mL SARS-CoV-2 (PCR) Detected A (Not Detectd) Crossmatch 12/01/23 12/01/23 12/01/23 Range/Units 07:00 07:00 07:26 WBC 22.1 H (3.8-10.6) k/uL RBC 3.10 L (4.30-5.90) m/uL Hgb 9.0 L (13.0-17.5) gm/dL Hct 27.6 L (39.0-53.0) % RDW 17.0 H (11.5-15.5) % Neutrophils # 20.0 H (1.3-7.7) k/uL Neutrophils # (Manual) (1.3-7.7) k/uL Lymphocytes # 0.8 L (1.0-4.8) k/uL Lymphocytes # (Manual) (1.0-4.8) k/uL Monocytes # (0-1.0) k/uL Sodium 147 H (137-145) mmol/L Potassium (3.5-5.1) mmol/L Chloride 111 H (98-107) mmol/L BUN 82 H (9-20) mg/dL Creatinine 1.60 H (0.66-1.25) mg/dL Glucose 122 H (74-99) mg/dL POC Glucose (mg/dL) (70-110) mg/dL C-Reactive Protein 23.2 H (<1.0) mg/dL Total Protein 5.4 L (6.3-8.2) g/dL Albumin 2.9 L (3.5-5.0) g/dL Procalcitonin 0.51 H (0.02-0.09) ng/mL SARS-CoV-2 (PCR) (Not Detectd) Crossmatch Microbiology - Last 24 Hours (Table) 11/29/23 23:55 Urine Culture - Final Urine,Clean Catch 11/29/23 13:20 Blood Culture - Preliminary Blood Assessment and Plan Assessment: 1. Acute kidney injury, ATN currently nonoliguric secondary to hypotension in the setting of use of angiotensin receptor blockers and severe anemia. Also element of significant urine retention status post Daniels catheter placement. Currently improving. B UN is disproportionately elevated secondary to most likely underlying GI bleed. UA is completely benign 2. Severe anemia rule out GI bleed. Patient was maintained on eliquis. Stool occult blood is positive. 3. Hypokalemia associated with use of diuretics and decreased oral intake 4. Hypotension, hypovolemic and secondary to severe anemia. 5. Anion gap metabolic acidosis associated with acute kidney injury and hypotension 6. Hypernatremia so sedated with free water deficit and use of diuretics 7. Chronic kidney disease NKF stage IV secondary to nephrosclerosis with previous creatinine 1.8 in July 2023. Plan: Switch IV fluids to half-normal saline given the hypernatremia Replace potassium Repeat labs in a.m. Continue with Daniels catheter
--- NOTE | 2023-12-01 13:34 | P.PN ---
"Subjective Progress Note Date: 11/30/23 Principal diagnosis: Reason for follow-up is leukocytosis Patient is a 78-year-old male with a past medical history significant for hypertension heart failure with pulmonary hypertension and atrial fibrillation patient presenting to the ER for evaluation of weakness also have a black stool was noticed to have a hemoglobin of 5.8 and elevated white count prompting this infectious disease consultation. On today's evaluation that is 11/30/2023 patient is afebrile, the patient is breathing comfortably on room air no chest pain shortness of breath or cough no vomiting or diarrhea has been reported. Patient white count is 17.7 creatinine is 1.91 liver exams are normal procalcitonin 0.51 cultures currently pending Objective - Vital Signs Vital signs: Vital Signs Temp 98.7 F 11/30/23 12:34 Pulse 85 11/30/23 12:34 Resp 14 11/30/23 12:34 BP 104/67 11/30/23 12:34 Pulse Ox 95 11/30/23 12:34 FiO2 Intake & Output 11/29/23 11/30/23 11/30/23 18:59 06:59 18:59 Intake Total 421.750 125 Output Total 300 3900 800 Balance 121.750 -3775 -800 Weight 77.836 kg Intake: Intake, IV Titration 111.750 125 Amount Diltiazem 125 mg In 111.750 125 Sodium Chloride 0.9% 100 ml @ 5 MG/HR 5 mls/hr IV .Q24H [facility] Rx#:[id number] Blood Product 310 Rc As-1 Unit 310 [id number] Output: Urine 300 3900 800 Uretheral (Daniels) 2600 Other: Voiding Method Diaper Urinal Indwelling Catheter Incontinent Indwelling Catheter # Voids 3 1 - Exam GENERAL DESCRIPTION: An elderly male lying in bed in no distress RESPIRATORY SYSTEM: Unlabored breathing , decreased breath sounds at bases HEART: S1 S2 regular rate and rhythm , ABDOMEN: Soft , no tenderness EXTREMITIES: No edema feet - Labs CBC & Chem 7: 12/01/23 07:00 12/01/23 07:26 Labs: Abnormal Lab Results - Last 24 Hours (Table) 11/28/23 11/29/23 11/30/23 Range/Units 18:00 19:20 08:03 WBC 17.9 H (3.8-10.6) k/uL RBC 2.83 L (4.30-5.90) m/uL Hgb 8.1 L (13.0-17.5) gm/dL Hct 24.5 L (39.0-53.0) % RDW 18.1 H (11.5-15.5) % Neutrophils # 16.2 H (1.3-7.7) k/uL Lymphocytes # 0.8 L (1.0-4.8) k/uL Potassium 2.7 L* (3.5-5.1) mmol/L BUN 113 H* (9-20) mg/dL Creatinine 1.91 H (0.66-1.25) mg/dL Glucose 158 H (74-99) mg/dL Crossmatch See Detail 11/30/23 Range/Units 08:03 WBC 16.7 H (3.8-10.6) k/uL RBC 2.59 L (4.30-5.90) m/uL Hgb 7.6 L (13.0-17.5) gm/dL Hct 22.4 L (39.0-53.0) % RDW 18.0 H (11.5-15.5) % Neutrophils # (1.3-7.7) k/uL Lymphocytes # (1.0-4.8) k/uL Potassium (3.5-5.1) mmol/L BUN (9-20) mg/dL Creatinine (0.66-1.25) mg/dL Glucose (74-99) mg/dL Crossmatch Assessment and Plan (1) Leukocytosis Current Visit: Yes Status: Acute Code(s): D72.829 - ELEVATED WHITE BLOOD CELL COUNT, UNSPECIFIED SNOMED Code(s): 329296328 Plan: 1patient with SIRS in this patient who did have elevated white count and tachycardia source possible GI bleed as the patient did have a tarry stools and did have hemoglobin of 5.8 patient is currently not running any fever chest x- ray was reported negative urine did show positive leukocyte Estrace possible component of UTI not entirely excluded 2-patient inflammatory markers are mildly elevated and blood cultures currently pending 3-patient to continue with Rocephin while waiting for the workup to be completed Dictation was produced using [employer] dictation software. please excuse any grammatical, word or spelling errors. Time with Patient: Less than 30"
--- NOTE | 2023-12-01 13:37 | P.PN ---
Subjective Progress Note Date: 12/01/23 Principal diagnosis: Reason for follow-up is leukocytosis Patient is a 78-year-old male with a past medical history significant for hypertension heart failure with pulmonary hypertension and atrial fibrillation patient presenting to the ER for evaluation of weakness also have a black stool was noticed to have a hemoglobin of 5.8 and elevated white count prompting this infectious disease consultation. On today's evaluation that is 12/01/2023 patient did spike a fever of 102 degrees for night this morning, the patient is breathing comfortably on room air without need for supplemental oxygen, the patient denies having any chest pain shortness of breath occasional dry cough no vomiting or diarrhea has been reported. Patient white count is up to 22.11.60 creatinine is 1.60 liver exams are normal procalcitonin 0.51 cultures currently pending, patient tested positive for COVID Objective - Vital Signs Vital signs: Vital Signs Temp 97.7 F 12/01/23 11:25 Pulse 91 12/01/23 11:25 Resp 15 12/01/23 11:25 BP 90/54 12/01/23 11:25 Pulse Ox 97 12/01/23 11:25 FiO2 Intake & Output 11/30/23 12/01/23 12/01/23 18:59 06:59 18:59 Intake Total 118 310 200 Output Total 1850 700 Balance -1732 310 -500 Intake: IV 200 Oral 118 Blood Product 0 310 Rc As-1 Unit 0 310 [id number] Output: Urine 1850 700 Other: Voiding Method Indwelling Catheter Indwelling Catheter Indwelling Catheter - Exam GENERAL DESCRIPTION: An elderly male lying in bed in no distress RESPIRATORY SYSTEM: Unlabored breathing , decreased breath sounds at bases HEART: S1 S2 regular rate and rhythm , ABDOMEN: Soft , no tenderness EXTREMITIES: No edema feet - Labs CBC & Chem 7: 12/01/23 07:00 12/01/23 07:26 Labs: Abnormal Lab Results - Last 24 Hours (Table) 11/28/23 11/30/23 11/30/23 Range/Units 18:00 15:14 17:26 WBC 17.7 H (3.8-10.6) k/uL RBC 2.65 L (4.30-5.90) m/uL Hgb 7.6 L (13.0-17.5) gm/dL Hct 22.8 L (39.0-53.0) % RDW 17.8 H (11.5-15.5) % Neutrophils # 15.6 H (1.3-7.7) k/uL Lymphocytes # 0.8 L (1.0-4.8) k/uL Monocytes # 1.1 H (0-1.0) k/uL Sodium (137-145) mmol/L Potassium 3.4 L (3.5-5.1) mmol/L Chloride (98-107) mmol/L BUN (9-20) mg/dL Creatinine (0.66-1.25) mg/dL Glucose (74-99) mg/dL POC Glucose (mg/dL) (70-110) mg/dL C-Reactive Protein (<1.0) mg/dL Total Protein (6.3-8.2) g/dL Albumin (3.5-5.0) g/dL Procalcitonin (0.02-0.09) ng/mL SARS-CoV-2 (PCR) (Not Detectd) Crossmatch See Detail 12/01/23 12/01/23 12/01/23 Range/Units 05:48 06:04 07:00 WBC 22.1 H (3.8-10.6) k/uL RBC 3.10 L (4.30-5.90) m/uL Hgb 9.0 L (13.0-17.5) gm/dL Hct 27.6 L (39.0-53.0) % RDW 17.0 H (11.5-15.5) % Neutrophils # 20.0 H (1.3-7.7) k/uL Lymphocytes # 0.8 L (1.0-4.8) k/uL Monocytes # (0-1.0) k/uL Sodium (137-145) mmol/L Potassium (3.5-5.1) mmol/L Chloride (98-107) mmol/L BUN (9-20) mg/dL Creatinine (0.66-1.25) mg/dL Glucose (74-99) mg/dL POC Glucose (mg/dL) 136 H (70-110) mg/dL C-Reactive Protein (<1.0) mg/dL Total Protein (6.3-8.2) g/dL Albumin (3.5-5.0) g/dL Procalcitonin (0.02-0.09) ng/mL SARS-CoV-2 (PCR) Detected A (Not Detectd) Crossmatch 12/01/23 12/01/23 Range/Units 07:00 07:26 WBC (3.8-10.6) k/uL RBC (4.30-5.90) m/uL Hgb (13.0-17.5) gm/dL Hct (39.0-53.0) % RDW (11.5-15.5) % Neutrophils # (1.3-7.7) k/uL Lymphocytes # (1.0-4.8) k/uL Monocytes # (0-1.0) k/uL Sodium 147 H (137-145) mmol/L Potassium (3.5-5.1) mmol/L Chloride 111 H (98-107) mmol/L BUN 82 H (9-20) mg/dL Creatinine 1.60 H (0.66-1.25) mg/dL Glucose 122 H (74-99) mg/dL POC Glucose (mg/dL) (70-110) mg/dL C-Reactive Protein 23.2 H (<1.0) mg/dL Total Protein 5.4 L (6.3-8.2) g/dL Albumin 2.9 L (3.5-5.0) g/dL Procalcitonin 0.51 H (0.02-0.09) ng/mL SARS-CoV-2 (PCR) (Not Detectd) Crossmatch Microbiology - Last 24 Hours (Table) 11/29/23 23:55 Urine Culture - Final Urine,Clean Catch 11/29/23 13:20 Blood Culture - Preliminary Blood Assessment and Plan (1) Leukocytosis Current Visit: Yes Status: Acute Code(s): D72.829 - ELEVATED WHITE BLOOD CELL COUNT, UNSPECIFIED SNOMED Code(s): 716176870 (2) Fever Current Visit: Yes Status: Acute Code(s): R50.9 - FEVER, UNSPECIFIED SNOMED Code(s): 717154621 (3) COVID-19 Current Visit: Yes Status: Acute Code(s): U07.1 - COVID-19 SNOMED Code(s): 411902668 Plan: 1patient with SIRS in this patient who did have elevated white count and tachycardia source possible GI bleed as the patient did have a tarry stools and did have hemoglobin of 5.8 patient is currently not running any fever chest x- ray was reported negative urine did show positive leukocyte Estrace possible component of UTI not entirely excluded 2-patient inflammatory markers are mildly elevated and blood cultures currently pending 3-patient did have a new fever also noticed to have worsening of the white count antibiotics has been adjusted to Zosyn, 4patient also tested positive for COVID however the patient did have a chest x- ray that was negative for acute pulmonary process and the patient not hypoxic no need for supplemental oxygen treatment for COVID will be mostly supportive Dictation was produced using [employer] dictation software. please excuse any grammatical, word or spelling errors. Time with Patient: Less than 30
--- NOTE | 2023-12-01 13:57 | P.PN ---
Subjective HISTORY OF PRESENT ILLNESS: This is a 78-year-old male with a past medical history significant for persistent atrial fibrillation, congestive heart failure, hypertension, and chronic anemia. Patient follows with a engineering manager out of [facility]. We have been asked to see the patient in consultation for A. fib with RVR. Patient examined at the bedside in the emergency room. The patient states he presented to the hospital for chief complaint of weakness. He denied having any chest pain or pressure. He denies any shortness of breath. Patient was found to be anemic with a hemoglobin of 5.8. He received RBC transfusion. Hemoglobin this morning is 7.4. He does report a history of anemia but he is somewhat of a poor historian and is unable to recall if he has had anemia workup in the past. He is prescribed Eliquis on an outpatient basis. He denies any blood in his stools or black tarry stools. Denies any hematuria. The patient was also found to be in A. fib with RVR. He was started on IV Cardizem. At the time of examination, he remains in atrial fibrillation with a heart rate around 120. He denies any previous history of coronary artery disease. * EKG reveals A. fib with RVR. Right bundle-branch block. PVCs. * Chest xray negative for acute process * Laboratory data: Hemoglobin 7.4. W BC 17.8. BUN 166. Creatinine 2.56. Troponin 0.054. ProBNP 16,000. * Current home cardiac medications include Eliquis 5 mg twice a day, Lasix 20 mg twice a day, Demadex 20 mg twice a day, metoprolol succinate 100 mg in the morning and 50 mg at night * Most recent echocardiogram obtained in July 2023 revealing ejection fraction 50%, severe pulmonary hypertension, moderate to severe mitral regurgitation, extremely calcified aortic valves, difficult to exclude bicuspid aortic valve. 11/30/2023 Patient examined this morning at the bedside. Patient denies chest pain or pressure. He denies shortness of breath. Telemetry reveals atrial fibrillation with a heart rate in the 80s. He remains on IV Cardizem at 10 mg an hour. Hemoglobin today is 7.6. Patient is scheduled to undergo endoscopy tomorrow with general surgery. His anticoagulation remains on hold. Echocardiogram c ompleted revealing ejection fraction 50-55%, moderate MR, moderate TR 12/01/2023 Patient examined this morning at the bedside. Patient denies chest pain or pressure. He denies shortness of breath. Patient developed a fever yesterday and was found to be positive for Coban 19. He underwent endoscopy this morning with general surgery revealing antral gastritis. No evidence of upper GI bleed. His anticoagulation remains on hold. Telemetry reveals atrial fibrillation with heart rate between [id number]. PHYSICAL EXAM: VITAL SIGNS: Reviewed. GENERAL: Well-developed in no acute distress. HEENT: Head is normocephalic. Pupils are equal, round. Sclerae anicteric. Mucous membranes of the mouth are moist. Neck supple. No JVD or thyromegaly LUNGS: Respirations even and unlabored. Lungs essentially clear to auscultation bilaterally. HEART: Irregular rate and rhythm. S1 and S2 heard. ABDOMEN: Soft. Nondistended. Nontender. EXTREMITIES: Normal range of motion. No clubbing or cyanosis. Peripheral pulses intact. No lower extremity edema NEUROLOGIC: Awake and alert. Oriented x 3. ASSESSMENT: Generalized weakness Persistent atrial fibrillation with RVR Acute on chronic anemia, etiology unclear Acute kidney injury Hypokalemia History of atrial fibrillation ablation, approximately 4 years ago History of congestive heart failure with preserved ejection fraction, 50% Acute Covid 19 PLAN: Continue telemetry monitoring Hold anticoagulation secondary to anemia Patient prescribed Demadex and Lasix on an outpatient basis. Unsure if patient was taking both of these medications at home. Continue to hold diuretics at this time Continue to hold losartan secondary to acute kidney injury Patient is currently awaiting a bed at [facility] Consider watchman device on an outpatient basis secondary to anemia with intolerance to anticoagulation No further inpatient recommendations from a cardiac standpoint We will sign off. Please reconsult if needed. Nurse practitioner note has been reviewed by physician. Signing provider agrees with the documented findings, assessment, and plan of care. Objective - Vital Signs Vital signs: Vital Signs Temp 97.7 F 12/01/23 11:25 Pulse 91 12/01/23 11:25 Resp 15 12/01/23 11:25 BP 90/54 12/01/23 11:25 Pulse Ox 97 12/01/23 11:25 FiO2 Intake & Output 11/30/23 12/01/23 12/01/23 18:59 06:59 18:59 Intake Total 118 310 200 Output Total 1850 700 Balance -1732 310 -500 Intake: IV 200 Oral 118 Blood Product 0 310 Rc As-1 Unit 0 310 [id number] Output: Urine 1850 700 Other: Voiding Method Indwelling Catheter Indwelling Catheter Indwelling Catheter - Labs CBC & Chem 7: 12/01/23 07:00 12/01/23 07:26 Labs: Abnormal Lab Results - Last 24 Hours (Table) 11/28/23 11/30/23 11/30/23 Range/Units 18:00 15:14 17:26 WBC 17.7 H (3.8-10.6) k/uL RBC 2.65 L (4.30-5.90) m/uL Hgb 7.6 L (13.0-17.5) gm/dL Hct 22.8 L (39.0-53.0) % RDW 17.8 H (11.5-15.5) % Neutrophils # 15.6 H (1.3-7.7) k/uL Lymphocytes # 0.8 L (1.0-4.8) k/uL Monocytes # 1.1 H (0-1.0) k/uL Sodium (137-145) mmol/L Potassium 3.4 L (3.5-5.1) mmol/L Chloride (98-107) mmol/L BUN (9-20) mg/dL Creatinine (0.66-1.25) mg/dL Glucose (74-99) mg/dL POC Glucose (mg/dL) (70-110) mg/dL C-Reactive Protein (<1.0) mg/dL Total Protein (6.3-8.2) g/dL Albumin (3.5-5.0) g/dL Procalcitonin (0.02-0.09) ng/mL SARS-CoV-2 (PCR) (Not Detectd) Crossmatch See Detail 12/01/23 12/01/23 12/01/23 Range/Units 05:48 06:04 07:00 WBC 22.1 H (3.8-10.6) k/uL RBC 3.10 L (4.30-5.90) m/uL Hgb 9.0 L (13.0-17.5) gm/dL Hct 27.6 L (39.0-53.0) % RDW 17.0 H (11.5-15.5) % Neutrophils # 20.0 H (1.3-7.7) k/uL Lymphocytes # 0.8 L (1.0-4.8) k/uL Monocytes # (0-1.0) k/uL Sodium (137-145) mmol/L Potassium (3.5-5.1) mmol/L Chloride (98-107) mmol/L BUN (9-20) mg/dL Creatinine (0.66-1.25) mg/dL Glucose (74-99) mg/dL POC Glucose (mg/dL) 136 H (70-110) mg/dL C-Reactive Protein (<1.0) mg/dL Total Protein (6.3-8.2) g/dL Albumin (3.5-5.0) g/dL Procalcitonin (0.02-0.09) ng/mL SARS-CoV-2 (PCR) Detected A (Not Detectd) Crossmatch 12/01/23 12/01/23 Range/Units 07:00 07:26 WBC (3.8-10.6) k/uL RBC (4.30-5.90) m/uL Hgb (13.0-17.5) gm/dL Hct (39.0-53.0) % RDW (11.5-15.5) % Neutrophils # (1.3-7.7) k/uL Lymphocytes # (1.0-4.8) k/uL Monocytes # (0-1.0) k/uL Sodium 147 H (137-145) mmol/L Potassium (3.5-5.1) mmol/L Chloride 111 H (98-107) mmol/L BUN 82 H (9-20) mg/dL Creatinine 1.60 H (0.66-1.25) mg/dL Glucose 122 H (74-99) mg/dL POC Glucose (mg/dL) (70-110) mg/dL C-Reactive Protein 23.2 H (<1.0) mg/dL Total Protein 5.4 L (6.3-8.2) g/dL Albumin 2.9 L (3.5-5.0) g/dL Procalcitonin 0.51 H (0.02-0.09) ng/mL SARS-CoV-2 (PCR) (Not Detectd) Crossmatch Microbiology - Last 24 Hours (Table) 11/29/23 23:55 Urine Culture - Final Urine,Clean Catch 11/29/23 13:20 Blood Culture - Preliminary Blood
[2023-12-01] MEDS: traZODone HCL 50 MG TAB PO SCH (21:19)
--- NOTE | 2023-12-01 22:19 | PN ---
PROGRESS NOTE DATE OF SERVICE: 12/01/2023 SUBJECTIVE: This is a 78-year-old gentleman, who was admitted with atrial fibrillation, also had acute GI bleed with acute blood loss anemia. The patient received 4 units of transfusion, transferred to [facility] as they accepted at this time, but currently the patient is running fever up to 102.3. COVID-19 was found to be positive. The patient is being closely monitored at this time. Multiple consultants are following the patient closely. PAST MEDICAL HISTORY: Reviewed. REVIEW OF SYSTEMS: A 14-point review is negative except as mentioned earlier. CURRENT MEDICATIONS: Reviewed include Colace. Doses and rest of the medications noted. PHYSICAL EXAMINATION: VITAL SIGNS: Pulse is 103, blood pressure 98/59, respirations 16. HEENT: Conjunctivae normal. NECK: No jugular venous distention. CARDIOVASCULAR: S1, S2. RESPIRATIONS: Breath sounds diminished at the bases. ABDOMEN: Soft. NERVOUS SYSTEM: No focal deficits. LABORATORY DATA: WBC 22.1, creatinine 1.6. Procalcitonin 0.51. ASSESSMENT: 1. Atrial fibrillation with rapid ventricular rate. 2. Possible gastrointestinal bleed with acute blood loss anemia, status post 4 units of transfusion. 3. Generalized weakness. 4. Relative hypotension. 5. Acute COVID-19 infection. 6. Acute on chronic kidney disease. 7. Chronic renal failure, stage 4. 8. Hypokalemia. 9. Increased WBC. 10.Troponin 0.054. Rule out acute dog-[id number]-elevation myocardial infarction. 11.Atrial fibrillation history. 12.History of congestive heart failure. 13.History of pulmonary hypertension. 14.Full code. RECOMMENDATIONS: Recommend to continue current management and continue symptomatic treatment. Otherwise, at this time, I would recommend continue the current medications. Continue the empiric antibiotics. Await and before transfer, we will repeat labs as mentioned earlier. Prognosis extremely guarded. I would recommend symptomatic treatment. Closely follow with Infectious Disease and multiple consultants. Further recommendations to follow. MMODL / IJN: [id number] /
[2023-12-02] MEDS: PIPERACILLIN-TAZOBACTAM 3.375 GM in SODIUM CHLORIDE 0.9% 100 ML IVPB SCH ×4 (00:49→23:21)
[2023-12-02] MEDS: SODIUM CHLORIDE 0.45% 1,000 ML IV SCH ×2 (05:16→16:56)
[2023-12-02 08:10] LABS: Anisocytosis Slight; Basophils % (A) 0 %; Eosinophils # (A) 0.1 k/uL (0-0.7); Eosinophils % (A) 1 %; HCT 23.8 % (39.0-53.0); HGB 7.8 gm/dL (13.0-17.5); Hypochromasia Moderate; Lymphocytes # (A) 0.7 k/uL (1.0-4.8); Lymphocytes % (A) 5 %; MCH 29.8 pg (25.0-35.0); MCHC 32.8 g/dL (31.0-37.0); Mean Platelet Volume 10.6; Monocytes # (A) 0.7 k/uL (0-1.0); Monocytes % (A) 5 %; Neutrophils % (A) 89 %; Platelet Count 165 k/uL (150-450); RBC 2.61 m/uL (4.30-5.90); RDW 17.1 % (11.5-15.5); WBC 14.7 k/uL (3.8-10.6)
[2023-12-02 08:27] LABS: ALT 25 U/L (4-49); AST 27 U/L (17-59); African American GFR (CKD) 45 (>60 ml/min/1.73 sqM); Albumin 2.3 g/dL (3.5-5.0); Alkaline Phosphatase 81 U/L (38-126); Anion Gap 12 mmol/L; Blood Urea Nitrogen 60 mg/dL (9-20); Calcium 8.9 mg/dL (8.4-10.2); Carbon Dioxide 25 mmol/L (22-30); Chloride 109 mmol/L (98-107); Glucose 113 mg/dL (74-99); Non-African American GFR(CKD) 39 (>60 ml/min/1.73 sqM); Potassium 3.6 mmol/L (3.5-5.1); Sodium 146 mmol/L (137-145); Total Bilirubin 0.8 mg/dL (0.2-1.3); Total Protein 4.7 g/dL (6.3-8.2)
[2023-12-02] MEDS: PANTOPRAZOLE 40 MG/10 ML VIAL IVP SCH ×2 (09:13→21:46)
[2023-12-02] MEDS: METOPROLOL SUCCINATE (ER) 100 MG TAB.ER.24H PO SCH ×2 (09:14→21:46)
[2023-12-02] MEDS: DOCUSATE 100 MG CAP PO SCH ×2 (09:14→21:46)
[2023-12-02] MEDS: CLOTRIMAZOLE 1% CREAM 30 GM TUBE TOPICAL SCH ×2 (09:14→21:45)
[2023-12-02] MEDS: NYSTATIN 100,000 UNIT/GM POWD 15 GM TOPICAL SCH ×3 (09:15→21:48)
--- NOTE | 2023-12-02 11:24 | P.PN ---
Subjective Progress Note Date: 12/02/23 CHIEF COMPLAINT: GI bleeding HISTORY OF PRESENT ILLNESS: Patient status post EGD revealing antral gastritis. No evidence of active upper GI bleed. Patient reports decreased appetite. Denies any nausea or vomiting. He's had no further bowel movements or black stools. Hemoglobin 9 down to 7.8. WBC 22 down to 14.7 platelets 165 PHYSICAL EXAM: VITAL SIGNS: Reviewed. GENERAL: Well-developed in no acute distress. ABDOMEN: Soft. Nondistended. Nontender. NEUROLOGIC: Alert and oriented. Cranial nerves II through XII grossly intact. ASSESSMENT: 1. Acute GI bleed with melanotic stools 2. Acute blood loss anemia secondary GI bleed 3. History of atrial fibrillation on Eliquis at home PLAN: -Patient had another drop in his hemoglobin. Plan for colonoscopy on 12/05/[address] lazo -Repeat CBC at noon and transfuse if needed -Downgrade diet to full liquids -Continue IV Protonix -Hold Eliquis Physician Lift Manager note has been reviewed by physician. Signing provider agrees with the documented findings, assessment, and plan of care. Objective - Vital Signs Vital signs: Vital Signs Temp 97.7 F 12/02/23 04:00 Pulse 92 12/02/23 04:00 Resp 20 12/02/23 04:00 BP 105/67 12/02/23 04:00 Pulse Ox 96 12/02/23 04:00 FiO2 Intake & Output 12/01/23 12/02/23 12/02/23 18:59 06:59 18:59 Intake Total 200 480 225 Output Total 700 1300 Balance -500 -820 225 Intake: IV 200 Oral 0 480 225 Output: Urine 700 1300 Other: Voiding Method Indwelling Catheter Indwelling Catheter - Labs CBC & Chem 7: 12/02/23 07:28 12/02/23 07:28 Labs: Abnormal Lab Results - Last 24 Hours (Table) 12/01/23 12/02/23 12/02/23 Range/Units 07:00 07:28 07:28 WBC 14.7 H (3.8-10.6) k/uL RBC 2.61 L (4.30-5.90) m/uL Hgb 7.8 L (13.0-17.5) gm/dL Hct 23.8 L (39.0-53.0) % RDW 17.1 H (11.5-15.5) % Neutrophils # 13.0 H (1.3-7.7) k/uL Lymphocytes # 0.7 L (1.0-4.8) k/uL Sodium 146 H (137-145) mmol/L Chloride 109 H (98-107) mmol/L BUN 60 H (9-20) mg/dL Creatinine 1.70 H (0.66-1.25) mg/dL Glucose 113 H (74-99) mg/dL Total Protein 4.7 L (6.3-8.2) g/dL Albumin 2.3 L (3.5-5.0) g/dL Procalcitonin 0.51 H (0.02-0.09) ng/mL Microbiology - Last 24 Hours (Table) 11/29/23 13:20 Blood Culture - Preliminary Blood 11/29/23 23:55 Urine Culture - Final Urine,Clean Catch
[2023-12-02] MEDS ORDERED: FUROSEMIDE 10 MG/ML 2 ML VIAL IV ONE (12:01)
--- NOTE | 2023-12-02 12:31 | P.PN ---
Subjective Patient is seen for follow-up for acute kidney injury and severe hypokalemia. COVID positive Noted to have significant urine retention, currently with indwelling Daniels catheter. Overall feeling better Maintained on IV fluids. Serum creatinine is down to 1.7 from 3.1 on admission. Hemoglobin low at 7.8 today. No active bleeding noted. Blood pressure remains low Objective - Vital Signs Vital signs: Vital Signs Temp 97.7 F 12/02/23 04:00 Pulse 92 12/02/23 04:00 Resp 20 12/02/23 04:00 BP 105/67 12/02/23 04:00 Pulse Ox 96 12/02/23 04:00 FiO2 Intake & Output 12/01/23 12/02/23 12/02/23 18:59 06:59 18:59 Intake Total 200 480 225 Output Total 700 1300 Balance -500 -820 225 Intake: IV 200 Oral 0 480 225 Output: Urine 700 1300 Other: Voiding Method Indwelling Catheter Indwelling Catheter - Exam Patient is awake, comfortable, no acute distress Examination of the heart S1 and S2 Examination of the lungs bilateral breath sounds are heard Abdomen is soft nontender Examination of lower extremities shows no significant edema DITCH CLEANER exam grossly intact - Labs CBC & Chem 7: 12/02/23 07:28 12/02/23 07:28 Labs: Abnormal Lab Results - Last 24 Hours (Table) 12/02/23 12/02/23 Range/Units 07:28 07:28 WBC 14.7 H (3.8-10.6) k/uL RBC 2.61 L (4.30-5.90) m/uL Hgb 7.8 L (13.0-17.5) gm/dL Hct 23.8 L (39.0-53.0) % RDW 17.1 H (11.5-15.5) % Neutrophils # 13.0 H (1.3-7.7) k/uL Lymphocytes # 0.7 L (1.0-4.8) k/uL Sodium 146 H (137-145) mmol/L Chloride 109 H (98-107) mmol/L BUN 60 H (9-20) mg/dL Creatinine 1.70 H (0.66-1.25) mg/dL Glucose 113 H (74-99) mg/dL Total Protein 4.7 L (6.3-8.2) g/dL Albumin 2.3 L (3.5-5.0) g/dL Microbiology - Last 24 Hours (Table) 11/29/23 13:20 Blood Culture - Preliminary Blood 11/29/23 23:55 Urine Culture - Final Urine,Clean Catch Assessment and Plan Assessment: 1. Acute kidney injury, ATN currently nonoliguric secondary to hypotension in the setting of use of angiotensin receptor blockers and severe anemia. Also element of significant urine retention status post Daniels catheter placement. Currently improving. B UN is disproportionately elevated secondary to most likely underlying GI bleed. UA is completely benign 2. Severe anemia rule out GI bleed. Patient was maintained on eliquis. Stool occult blood is positive. 3. Hypokalemia associated with use of diuretics and decreased oral intake 4. Hypotension, hypovolemic and secondary to severe anemia. 5. Anion gap metabolic acidosis associated with acute kidney injury and hypotension 6. Hypernatremia so sedated with free water deficit and use of diuretics 7. Chronic kidney disease NKF stage IV secondary to nephrosclerosis with previous creatinine 1.8 in July 2023. Plan: Continue with half normal saline Check iron profile Repeat labs in a.m. Continue with Daniels catheter
[2023-12-02 12:42] VITALS: BMI 27.6
[2023-12-02 12:45] LABS: Anisocytosis Slight; HCT 24.6 % (39.0-53.0); HGB 8.1 gm/dL (13.0-17.5); Hypochromasia Slight; MCH 29.4 pg (25.0-35.0); MCHC 32.7 g/dL (31.0-37.0); MCV 90.1 fL (80.0-100.0); Mean Platelet Volume 9.9; Platelet Count 186 k/uL (150-450); RBC 2.74 m/uL (4.30-5.90); RDW 16.7 % (11.5-15.5); WBC 15.8 k/uL (3.8-10.6)
--- NOTE | 2023-12-02 16:25 | CDI ---
Documentation Clarification Form Date: From: Allison Giles Phone: [phone] Admit Date: 11/28/2023 07:42:00 PM Patient Name: Darell Park Visit Number: [id number] Discharge Date: ATTENTION: The Clinical Documentation Specialists (CDI) and [facility] Coding Staff appreciate your assistance in clarifying documentation. Please respond to the clarification below the line at the bottom and electronically sign. The CDI & [facility] Coding staff will review the response and follow-up if needed. Please note: Queries are made part of the Legal Health Record. If you have any questions, please contact the author of this message via ITS. Dr. Harry Alba "COVID 19" is documented in the Progress Note dated 12/01. For each diagnosis, documentation must be clear to determine if the condition was present at the time of the patients inpatient admission or developed during the hospital stay. Additional clarification regarding the COVID 19 infection is requested. History/Risk Factors: "78-year-old male with a past medical history significant for hypertension heart failure with pulmonary hypertension and atrial fibrillation patient presenting to the ER for evaluation of weakness also have a black stool was noticed to have a hemoglobin of 5.8 and elevated white count prompting this infectious disease consultation." - Per Progress Note on 12/01 Clinical Indicators: "fever of 102 degrees" "breathing comfortably on room air without need for supplemental oxygen" "occasional dry cough" "patient also tested positive for COVID however the patient did have a chest x-ray that was negative for acute pulmonary process and the patient not hypoxic" "did have a new fever also noticed to have worsening of the white count" - Per Progress Note dated 12/01 WBC: 11/28 - 17.8, 11/29 - 17.1, 17.8, 17.9, 11/30 - 16.7, 17.7, 12/01 - 22.1, 12/02 - 14.7, 15.8 Procalcitonin: 12/01 - 0.51 C-Reactive Protein: 12/01 - 23.2 Lactic Acid: 11/30 - 1.5 Serology: 12/01 - SARS-CoV-2 (PCR) - Detected Treatment: "no need for supplemental oxygen treatment for COVID will be mostly supportive" "antibiotics has been adjusted to Zosyn" - Per Progress Note on 12/01 Definition of Present on Admission (POA): A diagnosis present at the time the order for admission to inpatient status was written. Please clarify if the COVID 19 infection was POA [ x ] Y = Yes, the condition was present at the time of the order for inpatient admission. Within incubation peroid [ ] N = No, the condition was not present at the time of the order for inpatient admission. [ ] W = Clinically undetermined if the condition was present at the time of the order for inpatient admission. MTDD
--- NOTE | 2023-12-02 20:43 | P.PN ---
Subjective Progress Note Date: 12/02/23 Principal diagnosis: Reason for follow-up is leukocytosis Patient is a 78-year-old male with a past medical history significant for hypertension heart failure with pulmonary hypertension and atrial fibrillation patient presenting to the ER for evaluation of weakness also have a black stool was noticed to have a hemoglobin of 5.8 and elevated white count prompting this infectious disease consultation. On today's evaluation that is 12/02/2023 patient did have resolution of his fever and is afebrile today, the patient is breathing comfortably on room air no chest pain shortness of breath or cough no nausea vomiting abdominal pain or diarrhea. Patient did have white count of 15.8 creatinine is 1.70 cultures have been negative so far Objective - Vital Signs Vital signs: Vital Signs Temp 98.7 F 12/02/23 12:00 Pulse 103 H 12/02/23 13:42 Resp 18 12/02/23 13:42 BP 101/71 12/02/23 12:00 Pulse Ox 96 12/02/23 12:00 FiO2 Intake & Output 12/01/23 12/02/23 12/02/23 18:59 06:59 18:59 Intake Total 528 053 7840 Output Total 700 1300 800 Balance -500 -820 715 Weight 77.836 kg Intake: IV 200 Intake, IV Titration 700 Amount Piperacillin-Tazobactam 3 100 .375 gm In Sodium Chloride 0.9% 100 ml @ 25 mls/hr IVPB Q8HR [facility] Rx# :[id number] Sodium Chloride 0.45% 1, 600 000 ml @ 75 mls/hr IV . [id number] [facility] Rx#:[id number] Oral 0 480 815 Output: Urine 700 1300 800 Other: Voiding Method Indwelling Catheter Indwelling Catheter Indwelling Catheter - Exam GENERAL DESCRIPTION: An elderly male lying in bed in no distress RESPIRATORY SYSTEM: Unlabored breathing , decreased breath sounds at bases HEART: S1 S2 regular rate and rhythm , ABDOMEN: Soft , no tenderness EXTREMITIES: No edema feet - Labs CBC & Chem 7: 12/02/23 12:11 12/02/23 07:28 Labs: Abnormal Lab Results - Last 24 Hours (Table) 12/02/23 12/02/23 12/02/23 Range/Units 07:28 07:28 12:11 WBC 14.7 H (3.8-10.6) k/uL RBC 2.61 L (4.30-5.90) m/uL Hgb 7.8 L (13.0-17.5) gm/dL Hct 23.8 L (39.0-53.0) % RDW 17.1 H (11.5-15.5) % Neutrophils # 13.0 H (1.3-7.7) k/uL Lymphocytes # 0.7 L (1.0-4.8) k/uL Sodium 146 H (137-145) mmol/L Chloride 109 H (98-107) mmol/L BUN 60 H (9-20) mg/dL Creatinine 1.70 H (0.66-1.25) mg/dL Glucose 113 H (74-99) mg/dL Total Protein 4.7 L (6.3-8.2) g/dL Albumin 2.3 L (3.5-5.0) g/dL Crossmatch See Detail 12/02/23 Range/Units 12:11 WBC 15.8 H (3.8-10.6) k/uL RBC 2.74 L (4.30-5.90) m/uL Hgb 8.1 L (13.0-17.5) gm/dL Hct 24.6 L (39.0-53.0) % RDW 16.7 H (11.5-15.5) % Neutrophils # (1.3-7.7) k/uL Lymphocytes # (1.0-4.8) k/uL Sodium (137-145) mmol/L Chloride (98-107) mmol/L BUN (9-20) mg/dL Creatinine (0.66-1.25) mg/dL Glucose (74-99) mg/dL Total Protein (6.3-8.2) g/dL Albumin (3.5-5.0) g/dL Crossmatch Microbiology - Last 24 Hours (Table) 12/01/23 07:00 Blood Culture - Preliminary Blood 11/29/23 13:20 Blood Culture - Preliminary Blood 11/29/23 23:55 Urine Culture - Final Urine,Clean Catch Assessment and Plan (1) Leukocytosis Current Visit: Yes Status: Acute Code(s): D72.829 - ELEVATED WHITE BLOOD CELL COUNT, UNSPECIFIED SNOMED Code(s): 126158242 (2) Fever Current Visit: Yes Status: Acute Code(s): R50.9 - FEVER, UNSPECIFIED SNOMED Code(s): 989908590 (3) COVID-19 Current Visit: Yes Status: Acute Code(s): U07.1 - COVID-19 SNOMED Code(s): 464474503 Plan: 1patient with SIRS in this patient who did have elevated white count and tachycardia source possible GI bleed as the patient did have a tarry stools and did have hemoglobin of 5.8 patient is currently not running any fever chest x- ray was reported negative urine did show positive leukocyte Estrace possible component of UTI not entirely excluded 2-patient inflammatory markers are mildly elevated and blood cultures currently pending 3-patient did have a new fever also noticed to have worsening of the white count antibiotics has been adjusted to Zosyn, cultures have been repeated which are currently pending we will keep the patient on Zosyn at this point 4patient also tested positive for COVID however the patient did have a chest x- ray that was negative for acute pulmonary process and the patient not hypoxic no need for supplemental oxygen to continue with the current supportive treatment for COVID-19 Dictation was produced using [employer] dictation software. please excuse any grammatical, word or spelling errors. Time with Patient: Less than 30
[2023-12-02] MEDS: traZODone HCL 50 MG TAB PO SCH (21:46)
--- NOTE | 2023-12-02 23:44 | PN ---
PROGRESS NOTE DATE OF SERVICE: 12/02/2023 SUBJECTIVE: This is a 78-year-old gentleman admitted with atrial fibrillation, also had possibly GI bleed and blood loss anemia. Currently, no obvious bleeding is noted, but hemoglobin is 7.8. Please note, the patient received 5 units of transfusions. We attempted the patient with [facility] and they have apparently approved the transfer. There is no history of any fever, rigors, or chills. Multiple consultants are following the patient. The patient also had COVID-19 positive. PAST MEDICAL HISTORY: Reviewed. REVIEW OF SYSTEMS: Fourteen-point review is negative except as mentioned earlier. CURRENT MEDICATIONS: Reviewed include Lotrimin, Toprol-XL. Dose and rest of medications noted. PHYSICAL EXAMINATION: VITAL SIGNS: Pulse is 88, blood pressure 105/60, respirations 20. HEENT: Conjunctivae pale. NECK: No jugular venous distention. CARDIOVASCULAR: S1, S2. RESPIRATIONS: Breath sounds diminished at the bases. ABDOMEN: Soft and nontender. NERVOUS SYSTEM: Nonfocal. LABORATORY DATA: WBC 15.1, hemoglobin is 8.1. ASSESSMENT: 1. Atrial fibrillation with rapid ventricular rate, present on admission. 2. Possible acute gastrointestinal bleed with acute blood loss anemia, status post 5 units transfusion. 3. Generalized weakness. 4. Relative hypotension. 5. Acute COVID-19 infection. 6. Acute on chronic kidney disease. 7. Chronic renal failure, stage 4. 8. Hypokalemia. 9. Increased WBC. 10.Troponin 0.054. Rule out acute glt-HY-cnbeyxz elevation myocardial infarction. 11.Atrial fibrillation history. 12.History of congestive heart failure. 13.History of pulmonary hypertension. 14.Full code. RECOMMENDATIONS: Recommend to continue current management and continue symptomatic treatment. Otherwise, we will monitor transfusion. Monitor hemoglobin closely. Hemoglobin dropped from 9 to 7.8 today. I would recommend to avoid anticoagulants and antiplatelet agents at this time. Otherwise, also recommended the case management and discharge planning team to contact [facility] to facilitate the transfer. This patient is currently stable, but overall prognosis is extremely guarded. We do not have the GI service at this time. Once taken, to be transferred to [facility]. MMODL / IJN: [id number] /
[2023-12-03 00:29] LABS: % Iron Saturation 3.76 (15.00-50.00)
[2023-12-03 06:05] LABS: Glucose,Whole Blood 127 mg/dL (70-110)
[2023-12-03] MEDS: SODIUM CHLORIDE 0.45% 1,000 ML IV SCH ×2 (07:52→18:35)
[2023-12-03] MEDS: PIPERACILLIN-TAZOBACTAM 3.375 GM in SODIUM CHLORIDE 0.9% 100 ML IVPB SCH ×2 (09:25→16:23)
[2023-12-03] MEDS: DOCUSATE 100 MG CAP PO SCH ×2 (09:26→21:25)
[2023-12-03] MEDS: PANTOPRAZOLE 40 MG/10 ML VIAL IVP SCH ×2 (09:26→21:25)
[2023-12-03] MEDS: NYSTATIN 100,000 UNIT/GM POWD 15 GM TOPICAL SCH ×3 (09:26→21:24)
[2023-12-03] MEDS: CLOTRIMAZOLE 1% CREAM 30 GM TUBE TOPICAL SCH ×2 (09:26→21:25)
[2023-12-03] MEDS: METOPROLOL SUCCINATE (ER) 100 MG TAB.ER.24H PO SCH ×2 (09:26→21:24)
[2023-12-03] MEDS: ACETAMINOPHEN SUPPOSITORY 650 MG SUPP RECTAL PRN (10:31)
--- NOTE | 2023-12-03 10:44 | P.PN ---
Subjective Patient is seen for follow-up for acute kidney injury and severe hypokalemia. COVID positive Noted to have significant urine retention, currently with indwelling Daniels catheter. Overall feeling better Maintained on IV fluids. Serum creatinine is down to 1.7 from 3.1 on admission. Objective - Vital Signs Vital signs: Vital Signs Temp 100 F H 12/03/23 09:00 Pulse 100 12/03/23 09:00 Resp 18 12/03/23 09:00 BP 105/63 12/03/23 09:00 Pulse Ox 97 12/03/23 09:00 FiO2 Intake & Output 12/02/23 12/03/23 12/03/23 18:59 06:59 18:59 Intake Total 2050 120 250 Output Total 800 800 Balance 1250 -680 250 Weight 77.836 kg Intake: IV 10 Invasive Line 3 10 Intake, IV Titration 700 Amount Piperacillin-Tazobactam 3 100 .375 gm In Sodium Chloride 0.9% 100 ml @ 25 mls/hr IVPB Q8HR [facility] Rx# :[id number] Sodium Chloride 0.45% 1, 600 000 ml @ 75 mls/hr IV . [id number] [facility] Rx#:[id number] Oral 1040 120 240 Blood Product 310 Rc As-1 Unit 310 [id number] Output: Urine 800 800 Other: Voiding Method Indwelling Catheter Indwelling Catheter - Exam Patient is awake, comfortable, no acute distress Examination of the heart S1 and S2 Examination of the lungs bilateral breath sounds are heard Abdomen is soft nontender Examination of lower extremities shows no significant edema CAGE TENDER exam grossly intact - Labs CBC & Chem 7: 12/02/23 12:11 12/02/23 07:28 Labs: Abnormal Lab Results - Last 24 Hours (Table) 12/02/23 12/02/23 12/02/23 Range/Units 07:28 12:11 12:11 WBC 15.8 H (3.8-10.6) k/uL RBC 2.74 L (4.30-5.90) m/uL Hgb 8.1 L (13.0-17.5) gm/dL Hct 24.6 L (39.0-53.0) % RDW 16.7 H (11.5-15.5) % POC Glucose (mg/dL) (70-110) mg/dL Iron 8 L (65-175) UG/DL TIBC 213 L (228-460) UG/DL % Saturation 3.76 L (15.00-50.00) Transferrin 152.0 L (204.0-354.0) mg/dL Crossmatch See Detail 12/03/23 Range/Units 06:03 WBC (3.8-10.6) k/uL RBC (4.30-5.90) m/uL Hgb (13.0-17.5) gm/dL Hct (39.0-53.0) % RDW (11.5-15.5) % POC Glucose (mg/dL) 127 H (70-110) mg/dL Iron (65-175) UG/DL TIBC (228-460) UG/DL % Saturation (15.00-50.00) Transferrin (204.0-354.0) mg/dL Crossmatch Microbiology - Last 24 Hours (Table) 11/29/23 13:20 Blood Culture - Preliminary Blood 12/01/23 07:00 Blood Culture - Preliminary Blood Assessment and Plan Assessment: 1. Acute kidney injury, ATN currently nonoliguric secondary to hypotension in the setting of use of angiotensin receptor blockers and severe anemia. Also element of significant urine retention status post Daniels catheter placement. Currently improving. B UN is disproportionately elevated secondary to most likely underlying GI bleed. UA is completely benign 2. Severe anemia rule out GI bleed. Patient was maintained on eliquis. Stool occult blood is positive. 3. Hypokalemia associated with use of diuretics and decreased oral intake 4. Hypotension, hypovolemic and secondary to severe anemia. 5. Anion gap metabolic acidosis associated with acute kidney injury and hypotension 6. Hypernatremia so sedated with free water deficit and use of diuretics 7. Chronic kidney disease NKF stage IV secondary to nephrosclerosis with previo us creatinine 1.8 in July 2023. 8. Iron deficiency Plan: Decrease half normal saline to 50 mL an hour Encourage increased oral intake IV iron Repeat labs in a.m. Continue with Daniels catheter
[2023-12-03 11:43] LABS: Glucose,Whole Blood 126 mg/dL (70-110)
[2023-12-03 12:11] LABS: Anisocytosis Slight; Basophils % (A) 0 %; Eosinophils # (A) 0.1 k/uL (0-0.7); Eosinophils % (A) 1 %; HCT 25.5 % (39.0-53.0); HGB 8.4 gm/dL (13.0-17.5); Hypochromasia Slight; Lymphocytes # (A) 0.6 k/uL (1.0-4.8); Lymphocytes % (A) 5 %; MCH 29.3 pg (25.0-35.0); MCHC 32.8 g/dL (31.0-37.0); MCV 89.5 fL (80.0-100.0); Mean Platelet Volume 10.3; Monocytes # (A) 0.6 k/uL (0-1.0); Monocytes % (A) 5 %; Neutrophils # (A) 10.4 k/uL (1.3-7.7); Neutrophils % (A) 88 %; Platelet Count 180 k/uL (150-450); Poikilocytosis Slight; RBC 2.85 m/uL (4.30-5.90); RDW 16.5 % (11.5-15.5); WBC 11.7 k/uL (3.8-10.6)
[2023-12-03 12:54] LABS: African American GFR (CKD) 45 (>60 ml/min/1.73 sqM); Anion Gap 8 mmol/L; Blood Urea Nitrogen 46 mg/dL (9-20); Calcium 8.2 mg/dL (8.4-10.2); Carbon Dioxide 25 mmol/L (22-30); Chloride 103 mmol/L (98-107); Glucose 113 mg/dL (74-99); Non-African American GFR(CKD) 39 (>60 ml/min/1.73 sqM); Potassium 3.6 mmol/L (3.5-5.1); Sodium 136 mmol/L (137-145)
[2023-12-03] MEDS: SODIUM FERRIC GLUCONAT-SUCROSE 125 MG in SODIUM CHLORIDE 0.9% 100 ML IVPB SCH (13:03)
--- NOTE | 2023-12-03 14:09 | P.PN ---
Objective - Vital Signs Vital signs: Vital Signs Temp 98.2 F 12/03/23 13:00 Pulse 94 12/03/23 13:00 Resp 18 12/03/23 13:00 BP 90/55 12/03/23 13:00 Pulse Ox 94 L 12/03/23 13:00 FiO2 Intake & Output 12/02/23 12/03/23 12/03/23 18:59 06:59 18:59 Intake Total 2050 120 970 Output Total 800 800 800 Balance 1250 -680 170 Weight 77.836 kg Intake: IV 10 Invasive Line 3 10 Intake, IV Titration 700 Amount Piperacillin-Tazobactam 3 100 .375 gm In Sodium Chloride 0.9% 100 ml @ 25 mls/hr IVPB Q8HR [facility] Rx# :[id number] Sodium Chloride 0.45% 1, 600 000 ml @ 50 mls/hr IV . Q20H [facility] Rx#:[id number] Oral 1040 120 960 Blood Product 310 Rc As-1 Unit 310 [id number] Output: Urine 800 800 800 Other: Voiding Method Indwelling Catheter Indwelling Catheter Indwelling Catheter - Labs CBC & Chem 7: 12/03/23 11:54 12/03/23 11:54 Labs: Abnormal Lab Results - Last 24 Hours (Table) 12/02/23 12/02/23 12/03/23 Range/Units 07:28 12:11 06:03 WBC (3.8-10.6) k/uL RBC (4.30-5.90) m/uL Hgb (13.0-17.5) gm/dL Hct (39.0-53.0) % RDW (11.5-15.5) % Neutrophils # (1.3-7.7) k/uL Lymphocytes # (1.0-4.8) k/uL Sodium (137-145) mmol/L BUN (9-20) mg/dL Creatinine (0.66-1.25) mg/dL Glucose (74-99) mg/dL POC Glucose (mg/dL) 127 H (70-110) mg/dL Calcium (8.4-10.2) mg/dL Iron 8 L (65-175) UG/DL TIBC 213 L (228-460) UG/DL % Saturation 3.76 L (15.00-50.00) Transferrin 152.0 L (204.0-354.0) mg/dL Crossmatch See Detail 12/03/23 12/03/23 12/03/23 Range/Units 11:41 11:54 11:54 WBC 11.7 H (3.8-10.6) k/uL RBC 2.85 L (4.30-5.90) m/uL Hgb 8.4 L (13.0-17.5) gm/dL Hct 25.5 L (39.0-53.0) % RDW 16.5 H (11.5-15.5) % Neutrophils # 10.4 H (1.3-7.7) k/uL Lymphocytes # 0.6 L (1.0-4.8) k/uL Sodium 136 L (137-145) mmol/L BUN 46 H (9-20) mg/dL Creatinine 1.67 H (0.66-1.25) mg/dL Glucose 113 H (74-99) mg/dL POC Glucose (mg/dL) 126 H (70-110) mg/dL Calcium 8.2 L (8.4-10.2) mg/dL Iron (65-175) UG/DL TIBC (228-460) UG/DL % Saturation (15.00-50.00) Transferrin (204.0-354.0) mg/dL Crossmatch Microbiology - Last 24 Hours (Table) 12/01/23 07:00 Blood Culture - Preliminary Blood 11/29/23 13:20 Blood Culture - Preliminary Blood Assessment and Plan Assessment: Patient is a 78 year old male who presents with melena and EGD evidence of antral gastritits Plan: -Diet as tolerated -Trend Hb; transfuse per primarhy -Continue GI Ppx -Plan for colonoscopy on 12/05/23 -Will order golytely prep on 12/04; NPO at midnight on 12/04 -No acute surgical intervention Jaspal Billy MD General Surgery
--- NOTE | 2023-12-03 14:29 | P.PN ---
Subjective Progress Note Date: 12/03/23 Principal diagnosis: Reason for follow-up is leukocytosis Patient is a 78-year-old male with a past medical history significant for hypertension heart failure with pulmonary hypertension and atrial fibrillation patient presenting to the ER for evaluation of weakness also have a black stool was noticed to have a hemoglobin of 5.8 and elevated white count prompting this infectious disease consultation. On today's evaluation that is 12/03/2023 patient did have low-grade fever 100 F this morning, the patient is afebrile since then, the patient is breathing comfortably on room air no chest pain shortness of breath or cough, the patient denies having any nausea vomiting abdominal pain or diarrhea. Patient did have white count is down to 11.7 creatinine is 1.67 cultures have been negative so far Objective - Vital Signs Vital signs: Vital Signs Temp 98.2 F 12/03/23 13:00 Pulse 94 12/03/23 13:00 Resp 18 12/03/23 13:00 BP 90/55 12/03/23 13:00 Pulse Ox 94 L 12/03/23 13:00 FiO2 Intake & Output 12/02/23 12/03/23 12/03/23 18:59 06:59 18:59 Intake Total 2050 120 970 Output Total 800 800 800 Balance 1250 -680 170 Weight 77.836 kg Intake: IV 10 Invasive Line 3 10 Intake, IV Titration 700 Amount Piperacillin-Tazobactam 3 100 .375 gm In Sodium Chloride 0.9% 100 ml @ 25 mls/hr IVPB Q8HR JEREMIAS Rx# :[id number] Sodium Chloride 0.45% 1, 600 000 ml @ 50 mls/hr IV . Q20H JEREMIAS Rx#:[id number] Oral 1040 120 960 Blood Product 310 Rc As-1 Unit 310 [id number] Output: Urine 800 800 800 Other: Voiding Method Indwelling Catheter Indwelling Catheter Indwelling Catheter - Exam GENERAL DESCRIPTION: An elderly male lying in bed in no distress RESPIRATORY SYSTEM: Unlabored breathing , decreased breath sounds at bases HEART: S1 S2 regular rate and rhythm , ABDOMEN: Soft , no tenderness EXTREMITIES: No edema feet - Labs CBC & Chem 7: 12/03/23 11:54 12/03/23 11:54 Labs: Abnormal Lab Results - Last 24 Hours (Table) 12/02/23 12/02/2324 Range/Units 07:28 12:11 06:03 WBC (3.8-10.6) k/uL RBC (4.30-5.90) m/uL Hgb (13.0-17.5) gm/dL Hct (39.0-53.0) % RDW (11.5-15.5) % Neutrophils # (1.3-7.7) k/uL Lymphocytes # (1.0-4.8) k/uL Sodium (137-145) mmol/L BUN (9-20) mg/dL Creatinine (0.66-1.25) mg/dL Glucose (74-99) mg/dL POC Glucose (mg/dL) 127 H (70-110) mg/dL Calcium (8.4-10.2) mg/dL Iron 8 L (65-175) UG/DL TIBC 213 L (228-460) UG/DL % Saturation 3.76 L (15.00-50.00) Transferrin 152.0 L (204.0-354.0) mg/dL Crossmatch See Detail 12/03/23 12/03/23 12/03/23 Range/Units 11:41 11:54 11:54 WBC 11.7 H (3.8-10.6) k/uL RBC 2.85 L (4.30-5.90) m/uL Hgb 8.4 L (13.0-17.5) gm/dL Hct 25.5 L (39.0-53.0) % RDW 16.5 H (11.5-15.5) % Neutrophils # 10.4 H (1.3-7.7) k/uL Lymphocytes # 0.6 L (1.0-4.8) k/uL Sodium 136 L (137-145) mmol/L BUN 46 H (9-20) mg/dL Creatinine 1.67 H (0.66-1.25) mg/dL Glucose 113 H (74-99) mg/dL POC Glucose (mg/dL) 126 H (70-110) mg/dL Calcium 8.2 L (8.4-10.2) mg/dL Iron (65-175) UG/DL TIBC (228-460) UG/DL % Saturation (15.00-50.00) Transferrin (204.0-354.0) mg/dL Crossmatch Microbiology - Last 24 Hours (Table) 12/01/23 07:00 Blood Culture - Preliminary Blood 11/29/23 13:20 Blood Culture - Preliminary Blood Assessment and Plan (1) Leukocytosis Current Visit: Yes Status: Acute Code(s): D72.829 - ELEVATED WHITE BLOOD CELL COUNT, UNSPECIFIED SNOMED Code(s): 907907090 (2) Fever Current Visit: Yes Status: Acute Code(s): R50.9 - FEVER, UNSPECIFIED SNOMED Code(s): 883808680 (3) COVID-19 Current Visit: Yes Status: Acute Code(s): U07.1 - COVID-19 SNOMED Code(s): 000323353 Plan: 1patient with SIRS in this patient who did have elevated white count and tachycardia source possible GI bleed as the patient did have a tarry stools and did have hemoglobin of 5.8 patient is currently not running any fever chest x- ray was reported negative urine did show positive leukocyte Estrace possible component of UTI not entirely excluded 2-patient inflammatory markers are mildly elevated and blood cultures so far negative 3-patient also tested positive for COVID however the patient did have a chest x-ray that was negative for acute pulmonary process and the patient not hypoxic no need for supplemental oxygen to continue with the current supportive treatment for COVID-19 4-patient overall feels better and has improved with the patient white count is trending down to continue with the Zosyn and monitor clinical course closely Dictation was produced using [employer] dictation software. please excuse any grammatical, word or spelling errors. Time with Patient: Less than 30
[2023-12-03 16:13] LABS: Glucose,Whole Blood 135 mg/dL (70-110)
[2023-12-03 21:04] LABS: Glucose,Whole Blood 114 mg/dL (70-110)
[2023-12-03] MEDS: traZODone HCL 50 MG TAB PO SCH (21:24)
--- NOTE | 2023-12-03 22:47 | PN ---
PROGRESS NOTE DATE OF SERVICE: 12/03/2023 SUBJECTIVE: This is a 78-year-old gentleman who was admitted with atrial fibrillation, possible acute GI bleed. [facility] has accepted the patient, but the patient is not being transferred yet. The Gastroenterology is not available. Hemoglobin is 8.4. No chest pain. No palpitation. Creatinine 1.67. The patient is running some fever. The patient is also COVID-19 positive. PHYSICAL EXAMINATION: VITAL SIGNS: Pulse is 100, blood pressure 105/62, respirations 18. HEENT: Conjunctivae normal. NECK: No jugular venous distention. CARDIOVASCULAR: S1 and S2. RESPIRATIONS: A few scattered rhonchi. ABDOMEN: Soft. NERVOUS SYSTEM: No focal deficits. LABORATORY DATA: WBC 11.7. ASSESSMENT: 1. Atrial fibrillation with rapid ventricular rate present on admission. 2. Possible acute GI bleed with acute blood loss anemia, status post 5 transfusions. 3. Fever. 4. Generalized weakness. 5. Acute COVID-19 infection. 6. Relative hypotension. 7. Acute on chronic kidney disease. 8. Chronic renal failure, stage 4. 9. Hypokalemia. 10.Increased WBC. 11.Troponin 0.054. Rule out coronary artery disease. 12.Atrial fibrillation history. 13.History of congestive heart failure. 14.History of pulmonary hypertension. 15.Full code. RECOMMENDATIONS: Recommend to continue current management and repeat labs. The patient is running fever. I would recommend cultures. The patient is on empiric antibiotics by Dr. Alba. Symptomatic treatment and the patient should be transferred to [facility] once they have a bed and accept the patient. Otherwise, we will continue to monitor. Prognosis extremely guarded because of multiple complex medical issues. Further recommendations to follow. See orders for details. MMODL / IJN: [id number] /
[2023-12-04] MEDS: PIPERACILLIN-TAZOBACTAM 3.375 GM in SODIUM CHLORIDE 0.9% 100 ML IVPB SCH ×2 (00:02→09:34)
[2023-12-04 06:37] LABS: Glucose,Whole Blood 114 mg/dL (70-110)
--- NOTE | 2023-12-04 07:38 | XR ---
EXAMINATION TYPE: XR chest 1V portable DATE OF EXAM: 12/04/2023 COMPARISON: 12/01/2023 INDICATION: CHF TECHNIQUE: Single frontal view of the chest is obtained. FINDINGS: The heart size is enlarged. The pulmonary vasculature is normal. The lungs are clear. IMPRESSION: 1. Cardiomegaly.
[2023-12-04] MEDS ORDERED: PEG 3350 (236 GM/BTL) + LYTES 4,000 ML BOTTLE PO ONE (09:00)
[2023-12-04] MEDS: METOPROLOL SUCCINATE (ER) 100 MG TAB.ER.24H PO SCH (09:34)
[2023-12-04] MEDS: PANTOPRAZOLE 40 MG/10 ML VIAL IVP SCH (09:34)
[2023-12-04] MEDS: SODIUM FERRIC GLUCONAT-SUCROSE 125 MG in SODIUM CHLORIDE 0.9% 100 ML IVPB SCH (09:34)
[2023-12-04] MEDS: DOCUSATE 100 MG CAP PO SCH (09:34)
[2023-12-04] MEDS: CLOTRIMAZOLE 1% CREAM 30 GM TUBE TOPICAL SCH (09:34)
[2023-12-04] MEDS: NYSTATIN 100,000 UNIT/GM POWD 15 GM TOPICAL SCH (09:35)
[2023-12-04 09:42] VITALS: RESP 18
--- NOTE | 2023-12-04 11:22 | P.PN ---
Subjective Patient is seen for follow-up for acute kidney injury and severe hypokalemia. COVID positive Noted to have significant urine retention, currently with indwelling Daniels catheter. Overall feeling better Maintained on IV fluids. Serum creatinine is down to 1.67 from 3.1 on admission. Being transferred to [place] [id number] due to GI bleed. Objective - Vital Signs Vital signs: Vital Signs Temp 98.0 F 12/04/23 09:29 Pulse 101 H 12/04/23 09:29 Resp 18 12/04/23 09:29 BP 115/75 12/04/23 09:29 Pulse Ox 99 12/04/23 09:29 FiO2 Intake & Output 12/03/23 12/04/23 12/04/23 18:59 06:59 18:59 Intake Total 970 240 10 Output Total 800 800 Balance 170 -560 10 Intake: IV 10 10 Invasive Line 3 10 Invasive Line 4 10 Oral 960 240 Output: Urine 800 800 Other: Voiding Method Indwelling Catheter Indwelling Catheter Indwelling Catheter # Bowel Movements 1 - Exam Patient is awake, comfortable, no acute distress Examination of the heart S1 and S2 Examination of the lungs bilateral breath sounds are heard Abdomen is soft nontender Examination of lower extremities shows trace edema CATECHIST exam grossly intact - Labs CBC & Chem 7: 12/03/23 11:54 12/03/23 11:54 Labs: Abnormal Lab Results - Last 24 Hours (Table) 12/03/23 12/03/23 12/03/23 Range/Units 11:41 11:54 11:54 WBC 11.7 H (3.8-10.6) k/uL RBC 2.85 L (4.30-5.90) m/uL Hgb 8.4 L (13.0-17.5) gm/dL Hct 25.5 L (39.0-53.0) % RDW 16.5 H (11.5-15.5) % Neutrophils # 10.4 H (1.3-7.7) k/uL Lymphocytes # 0.6 L (1.0-4.8) k/uL Sodium 136 L (137-145) mmol/L BUN 46 H (9-20) mg/dL Creatinine 1.67 H (0.66-1.25) mg/dL Glucose 113 H (74-99) mg/dL POC Glucose (mg/dL) 126 H (70-110) mg/dL Calcium 8.2 L (8.4-10.2) mg/dL 12/03/23 12/03/23 12/04/23 Range/Units 16:12 21:00 06:33 WBC (3.8-10.6) k/uL RBC (4.30-5.90) m/uL Hgb (13.0-17.5) gm/dL Hct (39.0-53.0) % RDW (11.5-15.5) % Neutrophils # (1.3-7.7) k/uL Lymphocytes # (1.0-4.8) k/uL Sodium (137-145) mmol/L BUN (9-20) mg/dL Creatinine (0.66-1.25) mg/dL Glucose (74-99) mg/dL POC Glucose (mg/dL) 135 H 114 H 114 H (70-110) mg/dL Calcium (8.4-10.2) mg/dL Microbiology - Last 24 Hours (Table) 12/01/23 07:00 Blood Culture - Preliminary Blood Assessment and Plan Assessment: 1. Acute kidney injury, ATN currently nonoliguric secondary to hypotension in the setting of use of angiotensin receptor blockers and severe anemia. Also element of significant urine retention status post Daniels catheter placement. Currently improving. B UN is disproportionately elevated secondary to underlying GI bleed. UA is completely benign 2. Severe anemia rule out GI bleed. Patient was maintained on eliquis. Stool occult blood is positive. 3. Hypokalemia associated with use of diuretics and decreased oral intake 4. Hypotension, hypovolemic and secondary to severe anemia. 5. Anion gap metabolic acidosis associated with acute kidney injury and hypotension 6. Hypernatremia so sedated with free water deficit and use of diuretics 7. Chronic kidney disease NKF stage IV secondary to nephrosclerosis with previous creatinine 1.8 in July 2023. 8. Iron deficiency Plan: Decrease half normal saline to 50 mL an hour Encourage increased oral intake IV iron Repeat labs in a.m. Continue with Daniels catheter
[2023-12-04 11:28] LABS: Anisocytosis Slight; Basophils % (A) 0 %; Eosinophils # (A) 0.1 k/uL (0-0.7); Eosinophils % (A) 1 %; HCT 25.9 % (39.0-53.0); HGB 8.3 gm/dL (13.0-17.5); Hypochromasia Slight; Lymphocytes # (A) 0.5 k/uL (1.0-4.8); Lymphocytes % (A) 5 %; MCH 28.9 pg (25.0-35.0); MCHC 32.2 g/dL (31.0-37.0); MCV 89.8 fL (80.0-100.0); Mean Platelet Volume 9.1; Monocytes # (A) 0.5 k/uL (0-1.0); Monocytes % (A) 4 %; Neutrophils # (A) 9.3 k/uL (1.3-7.7); Neutrophils % (A) 89 %; Platelet Count 213 k/uL (150-450); Poikilocytosis Slight; RBC 2.88 m/uL (4.30-5.90); RDW 16.4 % (11.5-15.5); WBC 10.5 k/uL (3.8-10.6)
[2023-12-04 11:41] LABS: ALT 31 U/L (4-49); AST 49 U/L (17-59); African American GFR (CKD) 55 (>60 ml/min/1.73 sqM); Albumin 2.3 g/dL (3.5-5.0); Alkaline Phosphatase 128 U/L (38-126); Anion Gap 13 mmol/L; Blood Urea Nitrogen 39 mg/dL (9-20); Calcium 8.1 mg/dL (8.4-10.2); Carbon Dioxide 23 mmol/L (22-30); Chloride 100 mmol/L (98-107); Glucose 153 mg/dL (74-99); Non-African American GFR(CKD) 48 (>60 ml/min/1.73 sqM); Potassium 3.4 mmol/L (3.5-5.1); Sodium 136 mmol/L (137-145); Total Bilirubin 0.9 mg/dL (0.2-1.3); Total Protein 4.8 g/dL (6.3-8.2)
[2023-12-04] MEDS ORDERED: POTASSIUM CHLORIDE ER 20 MEQ TAB.ER PO STA (11:49)
[2023-12-04 12:20] VITALS: BP 99/60; PULSE 104; TEMP 98.1
--- NOTE | 2023-12-05 01:19 | DS ---
DISCHARGE SUMMARY FINAL DIAGNOSES: 1. Atrial fibrillation with rapid ventricular rate present on admission. 2. Acute gastrointestinal bleed with acute blood loss anemia, status post 5 transfusions. 3. Fever. 4. Generalized weakness. 5. Acute COVID-19 infection. 6. Relative hypotension. 7. Acute on chronic kidney disease. 8. Chronic kidney disease, stage 4. 9. Atrial fibrillation history. 10.History of congestive heart failure. 11.Multiple medical problems. DISCHARGE DISPOSITION: The patient will be discharged in stable condition and guarded prognosis. The patient will be transferred to [facility] for further evaluation and treatment. HISTORY OF PRESENT ILLNESS: This is a 78-year-old gentleman, who originally was admitted with atrial fibrillation, but while in the hospital, the patient developed acute GI bleed with melenic stools and hemoglobin went down and the patient has to transfuse 5 units and hemoglobin is 8.4. At this time, the patient had a full GI workup. Gastroenterology is not available, so at this time, I recommend the patient to be transferred to [facility]. I discussed the case at [facility] and they are willing to transfer. MMBELINDAL / MABLEN: [id number] /
== END 2023-12-04 12:15 | disposition short-term general hospital (02) | DRG 377 ==
LOC: EC 17:54 → 3SCARD 19:42
PROVIDERS: ADMIT Hospitalist; ATTEND Hospitalist
PROC: 3E033RZ Introduction of Antiarrhythmic into Peripheral Vein, Percutaneous Approach (ICD-10-PCS; 2023-11-28)
PROC: 30233N1 Transfusion of Nonautologous Red Blood Cells into Peripheral Vein, Percutaneous Approach (ICD-10-PCS; 2023-11-28)
PROC: 0DB78ZX Excision of Stomach, Pylorus, Via Natural or Artificial Opening Endoscopic, Diagnostic (ICD-10-PCS; principal; 2023-12-01 12:30)
DX: K92.2 Gastrointestinal hemorrhage, unspecified (principal); N17.0 Acute kidney failure with tubular necrosis; U07.1 COVID-19; I48.19 Other persistent atrial fibrillation; I13.0 Hypertensive heart and chronic kidney disease with heart failure and stage 1 through stage 4 chronic kidney disease, or unspecified chronic kidney disease; E87.20 Acidosis, unspecified; E87.0 Hyperosmolality and hypernatremia; D62 Acute posthemorrhagic anemia; R65.10 Systemic inflammatory response syndrome (SIRS) of non-infectious origin without acute organ dysfunction; I50.32 Chronic diastolic (congestive) heart failure; N18.4 Chronic kidney disease, stage 4 (severe); N39.0 Urinary tract infection, site not specified; I95.9 Hypotension, unspecified; I27.20 Pulmonary hypertension, unspecified; K29.70 Gastritis, unspecified, without bleeding; I08.0 Rheumatic disorders of both mitral and aortic valves; I45.10 Unspecified right bundle-branch block; E61.1 Iron deficiency; E86.1 Hypovolemia; E87.6 Hypokalemia; R33.9 Retention of urine, unspecified; Z79.01 Long term (current) use of anticoagulants; Z79.899 Other long term (current) drug therapy; Z96.642 Presence of left artificial hip joint
CPT/HCPCS: 36415; 36430; 43239; 71045; 71046; 76770; 80048; 80053; 81001; 82272; 83540; 83550; 83605; 83735; 83880; 84132; 84145; 84484; 85025; 85027; 85610; 85730; 86140; 86850; 86900; 86901; 86920; 87040; 87086; 87636; 88305; 93005; 93306; 94760; 96365; 96366; 96368; 96375; 99291